=== PATIENT | male | born 1980 | race Caucasian/White ===

== ENCOUNTER 2018-08-05 21:15 | Emergency (ER) | payer OTHER ==
--- OUTSIDE RECORDS SUMMARY | 2018-08-05 21:17 | XMS REPORT | Clinical Summary ---
:1980 Author Organization [facility] Address [address] [place] [address] Care Team Providers Name Role Phone Asked, No Pcp Primary Care Provider Unavailable Allergies No Known Allergies Medications Medication Sig Dispensed Refills Start Date End Date Status meloxicam (MOBIC) Take 1 tablet 10 tablet 0 12/06/2017 Active 15 mg tablet (15 mg total) by mouth daily as needed for mild pain for up to 10 doses. penicillin v Take 1 tablet 40 tablet 0 12/06/2017 12/06/2017 Discontinued potassium (500 mg total) (VEETID) 500 MG by mouth 4 tablet (four) times a day for 7 days. acetaminophen-cod Take 1 tablet 10 tablet 0 12/06/2017 12/09/2017 eine (TYLENOL by mouth every WITH CODEINE #3) 6 (six) hours 300-30 mg per as needed for tablet moderate pain for up to 10 doses. meloxicam (MOBIC) Take 1 tablet 10 tablet 0 12/06/2017 12/06/2017 Discontinued 15 mg tablet (15 mg total) by mouth daily as needed for mild pain for up to 10 doses. penicillin v Take 1 tablet 28 tablet 0 12/06/2017 12/13/2017 potassium (500 mg total) (VEETID) 500 MG by mouth 4 tablet (four) times a day for 7 days. Active Problems Not on file Encounters Date Type Specialty Care Team Description 12/06/2017 Emergency Emergency Medicine Milton Cesar, Pulpitis ( Primary Dx); PACKER FUSER-C Dental decay Matheus Winter MD after 08/04/2017 Social History Tobacco Use Types Packs/Day Years Used Date Current Every Day Smoker Cigarettes 0.5 Smokeless Tobacco: Never Used Alcohol Use Drinks/Week oz/Week Comments Yes seldom Sex Assigned at Date Recorded Not on file Job Start Date Occupation Industry Not on file Not on file Not on file Travel History Travel Start Travel End No recent travel history available. Last Filed Vital Signs Vital Sign Reading Time Taken Blood Pressure 135/87 12/06/2017 7:51 PM CDT Pulse 109 12/06/2017 7:51 PM CDT Temperature 37.1 C (98.8 F) 12/06/2017 7:51 PM CDT Respiratory Rate 22 12/06/2017 7:51 PM CDT Oxygen Saturation 97% 12/06/2017 7:51 PM CDT Inhaled Oxygen Concentration - - Weight 72.6 kg (160 lb) 12/06/2017 6:27 PM CDT Height 170.2 cm (5' 7") 12/06/2017 6:27 PM CDT Body Mass Index 25.06 12/06/2017 6:27 PM CDT Plan of Treatment Not on file Results Not on fileafter 08/04/2017 Advance Directives Patient has advance care planning documents on file. For more information, please contact:[place] [address]
--- OUTSIDE RECORDS SUMMARY | 2018-08-05 21:23 | XMS REPORT | Summary of Care ---
:1980 Author Encounter MICHAEL Wang(KODY) [id number] Date(s): 09/14/13 - 09/15/13 [facility] [address] Discharge Diagnosis: Status post fall Discharge Diagnosis: Acute cervical radiculopathy Discharge Disposition: Home Physician Attending: Marvin Meyer MD Reason for Visit FALL Vital Signs Most recent to oldest [Reference Range]: 1 2 Height 170.18 cm (09/14/13 11:12 PM) Temperature Oral [96.4-99.1 DegF] 98.6 DegF 98.4 DegF (09/15/13 1:17 AM) (09/14/13 11:12 PM) Systolic Blood Pressure [90-140 mmHg] 140 mmHg 155 mmHg (09/15/13 1:17 AM) *HI* (09/14/13 11:12 PM) Diastolic Blood Pressure [60-90 mmHg] 86 mmHg 99 mmHg (09/15/13 1:17 AM) *HI* (09/14/13 11:12 PM) Respiratory Rate [14-20 BRMIN] 16 BRMIN 18 BRMIN (09/15/13 1:17 AM) (09/14/13 11:12 PM) Peripheral Pulse Rate [60-100 bpm] 98 bpm 122 bpm (09/15/13 1:17 AM) *HI* (09/14/13 11:12 PM) Weight 90.909 kg (09/14/13 11:12 PM) Body Mass Index 31.39 m2 (09/14/13 11:12 PM) Problem List No data available for this section Allergies, Adverse Reactions, Alerts Substance Reaction Severity Status NKDA Active Medications acetaminophen-hydrocodone 325 mg-5 mg oral tablet 1 tab, PO, Q6H, for pain, # 20 tab, 0 Refill(s) Start Date: 09/15/13 Status: Orderedketorolac 60 mg, 2 mL, Route: IM, Drug form: INJ, ONCE, Dosing Weight 90.909, kg, Priority : STAT, Start date: 09/14/13 23:31:00, Stop date: 09/14/13 23:31:00 Notes: (Same as:Toradol) IV bolus must be given >15 seconds. Give IM administration slowly and deeply into the muscle. Not for use > 4 days Start Date: 09/14/13 Stop Date: 09/15/13 Status: Completedorphenadrine 60 mg, 2 mL, Route: IM, Drug form: INJ, ONCE, Dosing Weight 90.909, kg, Priority : STAT, Start date: 09/14/13 23:31:00, Stop date: 09/14/13 23:31:00 Start Date: 09/14/13 Stop Date: 09/15/13 Status: Completedorphenadrine 100 mg oral tablet, extended release 100 mg=1 tab, PO, BID, # 10 tab, 0 Refill(s) Start Date: 09/15/13 Stop Date: 09/20/13 Status: Ordered Medications Administered During Your Visit No data available for this section Immunizations No data available for this section Procedures Procedure Type Body Site Date of Procedure Related Diagnosis Back fusion Social History Social History Type Response Smoking Status Never smoker, Exposure to Tobacco Smoke None, Cigarette Smoking Last 365 Days No, Reg Smoking Cessation Counseling No
--- OUTSIDE RECORDS SUMMARY | 2018-08-05 21:23 | XMS REPORT | Summary of Care ---
:1980 Author Organization [facility] Address [address] [place] [address]- Encounter HQ Kathleen(FIN) [id number] Date(s): 07/24/17 - 07/26/17 [facility] [address] [place] [phone] Encounter Diagnosis Cellulitis of face (Final) - Discharge Disposition: Home or Self Care Attending Physician: Vale Ibrahim MD Admitting Physician: Vale Ibrahim MD Vital Signs Most recent to oldest 1 2 3 [Reference Range]: Height 170.18 cm 170.18 cm 170.18 cm (07/24/17 4:19 PM) (07/24/17 3:48 PM) (07/24/17 3:47 PM) Current Weight 82.273 kg (07/24/17 4:19 PM) Temperature Oral [96.4-99.1 99.1 DegF 98.1 DegF 97.6 DegF DegF] (07/26/17 7:45 AM) (07/26/17 5:35 AM) (07/25/17 11:31 PM) Blood Pressure [90-140/60-90 132/81 mmHg 134/82 mmHg 114/76 mmHg mmHg] (07/26/17 7:45 AM) (07/26/17 5:35 AM) (07/25/17 11:31 PM) Respiratory Rate [14-20 BRMIN] 18 BRMIN 18 BRMIN 17 BRMIN (07/26/17 7:45 AM) (07/26/17 5:35 AM) (07/25/17 11:31 PM) Peripheral Pulse Rate [60-100 95 bpm 76 bpm 81 bpm bpm] (07/26/17 7:45 AM) (07/26/17 5:35 AM) (07/25/17 11:31 PM) Weight 82.273 kg 82.273 kg (07/24/17 3:48 PM) (07/24/17 3:47 PM) Body Mass Index 28.41 m2 28.41 m2 (07/24/17 3:48 PM) (07/24/17 3:47 PM) Problem List Condition Effective Dates Status Health Status Informant Back pain, chronic(Confirmed) Resolved Allergies, Adverse Reactions, Alerts Substance Reaction Severity Status NKDA Active Medications acetaminophen 650 mg, 2 tab, Route: PO, Drug form: TAB, Q4H, Dosing Weight 82.273, kg, PRN Pain 1-3/Temp > 100.4 F, Start date: 07/24/17 15:57:00 CDT, Duration: 30 day , Stop date: 08/23/17 15:56:00 CDT Notes: Do not exceed 4 gm/day. (Same as: Tylenol) Start Date: 07/24/17 Stop Date: 07/26/17 Status: DiscontinuedAugmentin 875 mg oral tablet 1 tab, PO, Q12H, X 7 day, # 14 tab, 0 Refill(s), Pharmacy: [facility] [id number] Start Date: 07/26/17 Stop Date: 08/02/17 Status: Orderedbaclofen 20 mg, 2 tab, Route: PO, Drug form: TAB, Q6H, Dosing Weight 82.273, kg, PRN as needed for muscle spasm, Start date: 07/24/17 23:36:00 CDT, Duration: 30 day, Stop date: 08/23/17 23:35:00 CDT Notes: (Same As: Lioresal) Start Date: 07/24/17 Stop Date: 07/26/17 Status: Discontinuedbaclofen 20 mg oral tablet 20 mg=1 tab, PO, Q6H, PRN Spasm, # 270 tab, 0 Refill(s) Start Date: 07/24/17 Status: OrderedcloNIDine 0.1 mg oral tablet 0.1 mg, 1 tab, Route: PO, Drug form: TAB, Q6H, Dosing Weight 82.273, kg, PRN Anxiety, Start date: 07/24/17 23:36:00 CDT, Duration: 30 day, Stop date: 23:35:00 CDT Notes: (Same As: Catapres) Start Date: 07/24/17 Stop Date: 07/26/17 Status: DiscontinuedcloNIDine 0.1 mg oral tablet 0.1 mg=1 tab, PO, Q6H, PRN Anxiety, prn for cravings & anxiety, # 90 tab, 3 Refill(s) Start Date: 07/24/17 Status: OrderedCymbalta 30 mg, 1 cap, Route: PO, Drug form: DRC, BID, Dosing Weight 82.273, kg, Start date: 07/24/17 23:38:00 CDT, Duration: 30 day, Stop date: 08/23/17 17:00:00 CDT Notes: (Same as: Cymbalta) (Do Not Crush) Start Date: 07/24/17 Stop Date: 07/26/17 Status: DiscontinuedCymbalta 30 mg oral delayed release capsule 30 mg=1 cap, PO, BID, # 60 cap, 0 Refill(s) Start Date: 07/24/17 Status: Orderedgabapentin 600 mg oral tablet 600 mg, 2 cap, Route: PO, Drug form: CAP, BID, Dosing Weight 82.273, kg, Start date: 07/24/17 23:41:00 CDT, Duration: 30 day, Stop date: 08/23/17 17:00:00 CDT Notes: (Same as: Neurontin) Start Date: 07/24/17 Stop Date: 07/26/17 Status: Discontinuedgabapentin 600 mg oral tablet, extended release 600 mg=1 tab, PO, BID, 0 Refill(s) Start Date: 07/24/17 Status: Orderedibuprofen 600 mg, 1 tab, Route: PO, Drug form: TAB, Q6H, Dosing Weight 82.273, kg, PRN Pain Score 1-3, Start date: 07/24/17 16:20:00 CDT, Duration: 30 day, Stop date: 08/23/17 16:19:00 CDT Notes: (Same as: Motrin)"Do Not Crush" Take with food. Start Date: 07/24/17 Stop Date: 07/26/17 Status: Discontinuedibuprofen 600 mg oral tablet 600 mg=1 tab, PO, Q6H, PRN Pain, take with food, # 30 tab, 0 Refill(s) Start Date: 07/24/17 Stop Date: 07/26/17 Status: Discontinuedibuprofen 600 mg oral tablet 600 mg=1 tab, PO, Q8H, PRN Pain, take with food, X 5 day, # 15 tab, 0 Refill(s) , Pharmacy: [facility] [id number] Start Date: 07/26/17 Stop Date: 07/31/17 Status: OrderedketOROLAC 15 mg/mL injectable solution 15 mg, 1 mL, Route: IVP, Drug form: INJ, Q6H, Dosing Weight 82.273, kg, PRN Pain Score 4-6, Start date: 07/24/17 16:04:00 CDT, Duration: 4 day, Stop date: 07/28/17 16:03:00 CDT Notes: (Same as:Toradol) IV bolus must be given >15 seconds. Give IM administration slowly and deeply into the muscle. Not for use > 4 days. Start Date: 07/24/17 Stop Date: 07/26/17 Status: Discontinuedondansetron 4 mg, 2 mL, Route: IVP, Drug form: INJ, Q6H, Dosing Weight 82.273, kg, PRN Nausea & Vomiting, Start date: 07/24/17 15:57:00 CDT, Duration: 30 day, Stop date: 08/23/17 15:56:00 CDT Notes: (Same as: Zofran) MEDICATION WASTE Product Size: 4 mgProduct Wasted: ___ mg Start Date: 07/24/17 Stop Date: 07/26/17 Status: DiscontinuedSaline Flush 0.9% 10 ml, Route: IVP, Drug Form: INJ, Dosing Weight 82.273, kg, PRN, PRN Line Flush , Start date: 07/24/17 15:57:00 CDT, Duration: 30 day, Stop date: 08/23/17 15:56 :00 CDT Notes: (Same as: BD Posiflush) Start Date: 07/24/17 Stop Date: 07/26/17 Status: DiscontinuedSEROquel 50 mg, 2 tab, Route: PO, Drug form: TAB, Bedtime, Dosing Weight 82.273, kg, Start date: 07/24/17 23:37:00 CDT, Stop date: 08/23/17 21:00:00 CDT Notes: (Same as: SEROquel) Start Date: 07/24/17 Stop Date: 07/26/17 Status: DiscontinuedSEROquel 50 mg oral tablet 50 mg=1 tab, PO, Bedtime, # 180 tab, 0 Refill(s) Start Date: 07/24/17 Status: OrderedSodium Chloride 0.9% IV 1,000 mL 1,000 mL, Rate: 100 ml/hr, Infuse over: 10 hr, Route: IV, Dosing Weight 82.273 kg, Total Volume: 1,000, Start date: 07/24/17 15:57:00 CDT, Duration: 30 day, Stop date: 08/23/17 15:56:00 CDT, 1.99, m2 Start Date: 07/24/17 Stop Date: 07/26/17 Status: DiscontinuedTylenol 325 mg oral tablet 650 mg=2 tab, PO, Q6H, PRN Fever, # 120 tab, 0 Refill(s) Start Date: 07/24/17 Stop Date: 08/03/17 Status: OrderedUnasyn + Sodium Chloride 0.9% IV 100 mL 3 gm, Route: IVPB, ABXQ6H, Dosing Weight 82.273, kg, Start date: 07/25/17 15:00: 00 CDT, Duration: 30day, Stop date: 08/24/17 9:00:00 CDT Notes: Dosing based on Ampicillin component (Same as: Unasyn) Start Date: 07/25/17 Stop Date: 07/26/17 Status: DiscontinuedVistaril 50 mg oral capsule 50 mg, 2 cap, Route: PO, Drug form: CAP, Q6H, Dosing Weight 82.273, kg, PRN Anxiety, Start date: 07/24/17 23:36:00 CDT, Duration: 30 day, Stop date: 23:35:00 CDT Notes: (Same as: Vistaril) Start Date: 07/24/17 Stop Date: 07/26/17 Status: DiscontinuedVistaril 50 mg oral capsule 50 mg=1 cap, PO, Q6H, PRN Anxiety, # 40 cap, 0 Refill(s) Start Date: 07/24/17 Stop Date: 08/03/17 Status: OrderedZosyn + Sodium Chloride 0.9% IV 100 mL 3.375 gm, Route: IVPB, ABXQ8H, Dosing Weight 82.273, kg, CrCl >=20 ml/min infuse over 4 hours, Start date: 07/24/17 17:00:00 CDT, Duration: 7 day, Stop date: 07/31/17 9:00:00 CDT, ABX Indication: Skin/Soft Tissue Infection Notes: (Same as: Zosyn)Dosing based on Piperacillin component MEDICATION WASTE Product Size: 3375 mgProduct Wasted: ___ mg Start Date: 07/24/17 Stop Date: 07/25/17 Status: DiscontinuedZubsolv Zubsolv, 0.7mg/0.18mg, Route: SL, BID, 07/24/17 23:41:00 CDT, Duration: 30 day, Stop date: 08/23/17 17:00:00 CDT Start Date: 07/24/17 Stop Date: 07/26/17 Status: DiscontinuedZubsolv 0.7 mg-0.18 mg sublingual tablet 1 tab, SL, BID, 0 Refill(s) Start Date: 07/24/17 Status: Ordered Results ELECTROLYTES Most recent to oldest [Reference Range]: 1 2 Sodium Lvl [135-145 mEq/L] 145 mEq/L 144 mEq/L (07/26/17 3:52 AM) (07/25/17 3:41 AM) Potassium Lvl [3.5-5.1 mEq/L] 4.7 mEq/L 4.5 mEq/L (07/26/17 3:52 AM) (07/25/17 3:41 AM) Chloride Lvl [95-109 mEq/L] 109 mEq/L 110 mEq/L (07/26/17 3:52 AM) *HI* (07/25/17 3:41 AM) CO2 [24-32 mEq/L] 30 mEq/L 28 mEq/L (07/26/17 3:52 AM) (07/25/17 3:41 AM) AGAP [10.0-20.0 mEq/L] 10.7 mEq/L 10.5 mEq/L (07/26/17 3:52 AM) (07/25/17 3:41 AM) CHEM PANEL Most recent to oldest [Reference Range]: 1 2 Creatinine Lvl [0.50-1.40 mg/dL] 0.89 mg/dL 0.92 mg/dL (07/26/17 3:52 AM) (07/25/17 3:41 AM) eGFR 111 mL/min/1.73m2 1 107 mL/min/1.73m2 2 *NA* *NA* (07/26/17 3:52 AM) (07/25/17 3:41 AM) BUN [7-22 mg/dL] 8 mg/dL 11 mg/dL (07/26/17 3:52 AM) (07/25/17 3:41 AM) Glucose Lvl [70-99 mg/dL] 100 mg/dL 99 mg/dL *HI* (07/25/17 3:41 AM) (07/26/17 3:52 AM) Calcium Lvl [8.5-10.5 mg/dL] 8.6 mg/dL 8.3 mg/dL (07/26/17 3:52 AM) *LOW* (07/25/17 3:41 AM) Magnesium Lvl [1.8-2.4 mg/dL] 2.0 mg/dL 2.1 mg/dL (07/26/17 3:52 AM) (07/25/17 3:41 AM) Procalcitonin Lvl [0.00-0.10] 0.13 *HI* (07/24/17 5:22 PM) 1Result Comment: The eGFR is calculated using the CKD-EPI formula. In most young , healthy individualsthe eGFR will be >90 mL/min/1.73m2. The eGFR declines with age. An eGFR of 60-89 may be normal insome populations, particularly the elderly, for whom the CKD-EPI formula has not been extensively validated. Use of the eGFR is not recommended in the following populations: Individuals with unstable creatinine concentrations, including patients and those with serious co-morbid conditions. Patients with extremes in muscle mass or diet. The data above are obtained from the National Kidney Disease Education Program ( NKDEP) which additionally recommends that when the eGFR is used in patients with extremes of body mass index for purposesof drug dosing, the eGFR should be multiplied by the estimated BMI.2Result Comment: The eGFR is calculated using the CKD-EPI formula. In most young, healthy individualsthe eGFR will be >90 mL/min/1.73m2. The eGFR declines with age. An eGFR of 60-89 may be normal insome populations, particularly the elderly, for whom the CKD-EPI formula has not been extensively validated. Use of the eGFR is not recommended in the following populations: Individuals with unstable creatinine concentrations, including patients and those with serious co-morbid conditions. Patients with extremes in muscle mass or diet. The data above are obtained from the National Kidney Disease Education Program ( NKDEP) which additionally recommends that when the eGFR is used in patients with extremes of body mass index for purposesof drug dosing, the eGFR should be multiplied by the estimated BMI.HEMATOLOGY Most recent to oldest [Reference Range]: 1 2 WBC [3.7-10.4 K/CMM] 5.6 K/CMM 5.5 K/CMM (07/26/17 3:52 AM) (07/25/17 3:41 AM) RBC [4.70-6.10 M/CMM] 4.64 M/CMM 4.65 M/CMM *LOW* *LOW* (07/26/17 3:52 AM) (07/25/17 3:41 AM) Hgb [14.0-18.0 g/dL] 13.9 g/dL 13.8 g/dL *LOW* *LOW* (07/26/17 3:52 AM) (07/25/17 3:41 AM) Hct [42.0-54.0 %] 38.7 % 39.3 % *LOW* *LOW* (07/26/17 3:52 AM) (07/25/17 3:41 AM) MCV [80.0-94.0 fL] 83.4 fL 84.6 fL (07/26/17 3:52 AM) (07/25/17 3:41 AM) MCH [27.0-31.0 pg] 29.9 pg 29.6 pg (07/26/17 3:52 AM) (07/25/17 3:41 AM) MCHC [32.0-36.0 g/dL] 35.8 g/dL 35.0 g/dL (07/26/17 3:52 AM) (07/25/17 3:41 AM) RDW [11.5-14.5 %] 13.5 % 13.5 % (07/26/17 3:52 AM) (07/25/17 3:41 AM) MPV [7.4-10.4 fL] 8.9 fL 8.7 fL (07/26/17 3:52 AM) (07/25/17 3:41 AM) Platelet [133-450 K/CMM] 164 K/CMM 153 K/CMM (07/26/17 3:52 AM) (07/25/17 3:41 AM) Segs [45.0-75.0 %] 62.1 % 61.9 % (07/26/17 3:52 AM) (07/25/17 3:41 AM) Lymphocytes [20.0-40.0 %] 23.7 % 22.9 % (07/26/17 3:52 AM) (07/25/17 3:41 AM) Monocytes [2.0-12.0 %] 7.9 % 9.6 % (07/26/17 3:52 AM) (07/25/17 3:41 AM) Eosinophils [0.0-4.0 %] 5.6 % 5.0 % *HI* *HI* (07/26/17 3:52 AM) (07/25/17 3:41 AM) Basophils [0.0-1.0 %] 0.7 % 0.6 % (07/26/17 3:52 AM) (07/25/17 3:41 AM) Segs-Bands # [1.5-8.1 K/CMM] 3.5 K/CMM 3.4 K/CMM (07/26/17 3:52 AM) (07/25/17 3:41 AM) Lymphocytes # [1.0-5.5 K/CMM] 1.3 K/CMM 1.3 K/CMM (07/26/17 3:52 AM) (07/25/17 3:41 AM) Monocytes # [0.0-0.8 K/CMM] 0.4 K/CMM 0.5 K/CMM (07/26/17 3:52 AM) (07/25/17 3:41 AM) Eosinophils # [0.0-0.5 K/CMM] 0.3 K/CMM 0.3 K/CMM (07/26/17 3:52 AM) (07/25/17 3:41 AM) Immunizations No data available for this section Procedures Procedure Date Related Diagnosis Body Site Status Back fusion Completed Neck repair Completed Primary repair of tendon Completed Social History Social History Type Response Alcohol Never, Previous treatment: None. Alcohol use interferes with work or home: No. Drinks more than intended: No. Others hurt by drinking: No. Ready to change: No. Household alcohol concerns: No. Smoking Status Current some day smoker; Type: Cigarettes; Exposure to Tobacco Smoke None; Cigarette Smoking Last 365 Days No; Reg Smoking Cessation Counseling No entered on: 07/24/17 Assessment and Plan Extracted from: Title: Clinical Document Author: Vale Ibrahim MD Date: 07/25/17 Attending: Vale Ibrahim MD Service: Internal Medicine Code status: Full Code [Ordered] Reason for Admission: FACIAL CELLULITIS, FAILURE OF OUTPATIENT TREATMENT Working DRG: Isolation: No Isolation/Standard Precautions Consulting Physicians: William Sierra MD Office: Service: Infectious Disease Vale Gavin MD Office: Service: Infectious Disease Maxim Cottrell MD Office: Service: Otolaryngology Allergies (1) Active Reaction NKDA None documented SUBJECTIVE: No acute events overnight. Feels like there is a knot near is a right upper cheek. Tender to palpation. OBJECTIVE: Review of Systems: 10 Point review of systems performed negative as of above PE: GENERAL APPEARANCE: alert and cooperative, and appears to be in no acute distress. HEAD: normocephalic, atraumatic EYES: PERRL, EOMI. MOUTH: Oral mucosa appears moist. Right facial swelling and erythema improved compared to yesterday. Tender to palpation per NECK: Neck supple, non-tender CARDIAC: Normal S1 and S2. No murmurs heard. Normal rate and rhythm. LUNGS: Clear to auscultation without rales, rhonchi, wheezing or diminished breath sounds. ABDOMEN: Positive bowel sounds. Soft, nondistended, nontender. No guarding or rebound. EXTREMITIES: No lower extremity edema. Peripheral pulses intact. NEUROLOGICAL: CN II-XII intact. Strength and sensation symmetric and intact throughout. PSYCHIATRIC: Mood stable Date Wt(kg) Wt(lb) Ht(cm) Ht(in) Method 07/24 (initial) 82.27 181.00 Measured 07/24 170.18 67.00 Stated Vitals Tmp(F) Pulse BP RR SpO2 FIO2 07/25 09:11 98.1 79 123/77 18 99 --- 07/25 04:00 98.0 85 113/72 18 98 --- 07/25 00:00 98.1 95 130/83 18 98 --- 07/24 20:00 98.0 94 123/65 17 95 --- 07/24 16:23 98.2 75 139/91 17 100 --- 24 Hr Tmax: 98.2F (36.78c) at 07/24 16:23 Vital Signs are the last 5 in the past 48 hours. Medications (14) Active Scheduled Meds (5): 07/24/17 DULoxetine (Cymbalta) 30 mg PO BID 07/24/17 QUEtiapine (SEROquel) 50 mg PO Bedtime 07/25/17 ampicillin-sulbactam (Unasyn) 3 gm IVPB ABXQ6H 07/24/17 gabapentin (gabapentin 600 mg oral tablet) 600 mg PO BID 07/24/17 non-formulary (Zubsolv) SL BID Unscheduled Meds: None PRN Meds (8): 07/24/17 acetaminophen 650 mg PO Q4H 07/24/17 baclofen 20 mg PO Q6H 07/24/17 cloNIDine (cloNIDine 0.1 mg oral tablet) 0.1 mg PO Q6H 07/24/17 hydrOXYzine (Vistaril 50 mg oral capsule) 50 mg PO Q6H 07/24/17 ibuprofen 600 mg PO Q6H 07/24/17 ketOROLAC (ketOROLAC 15 mg/mL injectable solution) 15 mg IVP Q6H 07/24/17 ondansetron 4 mg IVP Q6H 07/24/17 sodium chloride (Saline Flush 0.9%) 10 ml IVP PRN One Time Meds: None Continuous Infusions (1): 07/24/17 Sodium Chloride 0.9% IV 1,000 mL 1,000 mL 100 ml/hr Lines, Tubes, and Drains: 07/24/2017 16:00 Peripheral Lines: Antecubital Left Over the needle catheter I&O Record In Out Bal 07/25 24hr Tot 102 0 102 07/24 24hr Tot 462 0 462 24hr Labs 07/25 0341 Glucose Lvl 99 BUN 11 Creatinine Lvl 0.92 Sodium Lvl 144 Potassium Lvl 4.5 Chloride Lvl 110 H CO2 28 AGAP 10.5 Calcium Lvl 8.3 L eGFR 107 Magnesium Lvl 2.1 WBC 5.5 RBC 4.65 L Hgb 13.8 L Hct 39.3 L MCV 84.6 MCH 29.6 MCHC 35.0 RDW 13.5 Platelet 153 MPV 8.7 Segs 61.9 Monocytes 9.6 Lymphocytes 22.9 Eosinophils 5.0 H Basophils 0.6 Segs-Bands # 3.4 Lymphocytes # 1.3 Monocytes # 0.5 Eosinophils # 0.3 07/24 1722 Procalcitonin Lvl 0.13 H ASSESSMENT & PLAN: Assessment: Failure of outpatient therapy Right facial cellulitis Chronic back pain status post cervical fusion Plan: Currently on IV Zosyn. Discussed with infectious disease, will de-escalate to IV Unasyn and if continued improvement discharge on oral Augmentin tomorrow. Blood culture 2 trending negative for now. No leukocytosis. ENT recommendations noted. IV ketorolac and p.o. ibuprofen as needed. Avoid narcotics. DVT prophylaxis SCDs and ambulation. Has been ablating well without difficulties. Disposition: If continued improvement, likely discharge tomorrow a.m. on Augmentin per ID Extracted from: Title: ENT Consultation Author: Maxim Cottrell MD Date: 07/24/17 Impression and Plan 36 yo M with right facial swelling 2/2 poor dentition and small odontogenic abscess per report. Cellulitis on exam. - workup is substandard since CT is only available by report and was done without contrast anyway. However, exam is consistent with cellulitis 2/2 small odontogenic abscess. He will need tooth extracted as an outpatient with a dentist. However he does not require I&D now based on available information and exam. - continue IV abx per primary team; consider Unasyn or clindamycin - ok for steroids; decadron 10mg q8h is acceptable and may help some with symptoms - will follow peripherally. He will need to follow up with his dentist when discharged. He is aware he needs extractions. If he does not improve clinically over the next few days on IV abx and especiall y if he starts having new fevers, then he will require repeat CT Face with contrast. Please call me with any questions or concerns. Extracted from: Title: History and Physical Author: Vale Ibrahim MD Date: 07/24/17 Assessment: Failure of outpatient therapy Right facial cellulitis Chronic back painstatus postcervical fusion Plan: Received vancomycin and Zosyn while in the ER. Will continue with IV Zosyn for now and involve infectious disease secondary to failure for outpatient therapy. If continued improvement and culture returns negative, likely de-escalation tomorrow. Check blood culture 2, pro calcitonin and daily labs. Will also involve ENT with facialswelling and subcutaneous edemasecondary totransferrequest IV ketorolac and p.o. ibuprofen as needed. Avoid narcotics. Currentlysaturating well on room air without any shortness of breath. Continue to watch respiratory status carefully. DVT prophylaxis SCDs and ambulation Disposition: Pending clinical improvement likely more than2 midnights
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
--- OUTSIDE RECORDS SUMMARY | 2018-08-05 21:24 | XMS REPORT | Summary of Care ---
:1980 Author Encounter MICHAEL Wang(KODY) [id number] Date(s): 12/20/13 - 12/20/13 [facility] [address] Discharge Diagnosis: Back pain Discharge Disposition: Home Physician Attending: Aldo Manzo MD Reason for Visit LOWER BACK PAIN Vital Signs Most recent to oldest 1 2 3 [Reference Range]: Temperature Oral [96.4-99.1 98.3 DegF 98.4 DegF DegF] (12/20/13 6:13 PM) (12/20/13 2:27 PM) Systolic Blood Pressure 117 mmHg 109 mmHg 154 mmHg [90-140 mmHg] (12/20/13 6:13 PM) (12/20/13 5:40 PM) *HI* (12/20/13 2:27 PM) Diastolic Blood Pressure 76 mmHg 82 mmHg 88 mmHg [60-90 mmHg] (12/20/13 6:13 PM) (12/20/13 5:40 PM) (12/20/13 2:27 PM) Respiratory Rate [14-20 16 BRMIN 20 BRMIN 22 BRMIN BRMIN] (12/20/13 6:13 PM) (12/20/13 5:40 PM) *HI* (12/20/13 2:27 PM) Peripheral Pulse Rate 105 bpm 108 bpm 111 bpm [60-100 bpm] *HI* *HI* *HI* (12/20/13 6:13 PM) (12/20/13 5:40 PM) (12/20/13 2:27 PM) Weight 90.909 kg (12/20/13 2:27 PM) Problem List No data available for this section Allergies, Adverse Reactions, Alerts Substance Reaction Severity Status NKDA Active Medications Dilaudid 1 mg, Route: IVP, ONCE, Dosing Weight 90.909, kg, Priority: STAT, Start date: 17:35:00, Stop date: 12/20/13 17:35:00 Start Date: 12/20/13 Stop Date: 12/20/13 Status: CompletedFlexeril 10 mg oral tablet 10 mg=1 tab, PO, TID, for spasm, # 30 tab, 0 Refill(s) Start Date: 12/20/13 Status: Orderedketorolac 30 mg, Route: IVP, ONCE, Dosing Weight 90.909, kg, Priority: STAT, Start date: 12/20/13 15:05:00, Stop date: 12/20/13 15:05:00 Start Date: 12/20/13 Stop Date: 12/20/13 Status: Completedmorphine Sulfate 8 mg, Route: IVP, ONCE, Dosing Weight 90.909, kg, Priority: STAT, Start date: 15:05:00, Stop date: 12/20/13 15:05:00 Start Date: 12/20/13 Stop Date: 12/20/13 Status: Completednaproxen 500 mg oral tablet 500 mg=1 tab, PO, BID, Pain, # 30 tab, 0 Refill(s) Start Date: 12/20/13 Status: OrderedNorco 5/325 oral tablet 1-2 tab, PO, Q4-6H, Pain, # 15 tab, 0 Refill(s) Start Date: 12/20/13 Stop Date: 12/25/13 Status: Orderedondansetron 4 mg, Route: IVP, ONCE, Dosing Weight 90.909, kg, Priority: STAT, Start date: 15:05:00, Stop date: 12/20/13 15:05:00 Start Date: 12/20/13 Stop Date: 12/20/13 Status: Completedondansetron 4 mg, Route: IVP, ONCE, Dosing Weight 90.909, kg, Priority: STAT, Start date: 17:27:00, Stop date: 12/20/13 17:27:00 Start Date: 12/20/13 Stop Date: 12/20/13 Status: CompletedSaline Flush 0.9% 10 mL, Route: IVP, Drug Form: INJ, Dosing Weight 90.909, kg, PRN, PRN Line Flush , Start date: 12/20/13 15:05:00, Duration: 30 day, Stop date: 01/19/14 14:04:00 Notes: Same as: BD Posiflush Sterile Start Date: 12/20/13 Stop Date: 12/20/13 Status: Discontinued Results ELECTROLYTES Most recent to oldest [Reference Range]: 1 Sodium Lvl [135-145 mEq/L] 136 mEq/L (12/20/13 2:43 PM) Potassium Lvl [3.5-5.1 mEq/L] 4.5 mEq/L (12/20/13 2:43 PM) Chloride Lvl [95-109 mEq/L] 102 mEq/L (12/20/13 2:43 PM) CO2 [24-32 mEq/L] 28 mEq/L (12/20/13 2:43 PM) AGAP [10.0-20.0 mEq/L] 10.5 mEq/L (12/20/13 2:43 PM) CHEM PANEL Most recent to oldest [Reference Range]: 1 Creatinine Lvl [0.5-1.4 mg/dL] 1.1 mg/dL (12/20/13 2:43 PM) eGFR 86 mL/min/1.73m2 1 *NA* (12/20/13 2:43 PM) BUN [7-22 mg/dL] 18 mg/dL (12/20/13 2:43 PM) B/C Ratio [6-25] 16 (12/20/13 2:43 PM) Glucose Lvl [70-99 mg/dL] 94 mg/dL 2 (12/20/13 2:43 PM) Total Protein [6.4-8.4 g/dL] 8.4 g/dL (12/20/13 2:43 PM) Albumin Lvl [3.5-5.0 g/dL] 4.4 g/dL (12/20/13 2:43 PM) Globulin [2.0-4.0 g/dL] 4.0 g/dL (12/20/13 2:43 PM) A/G Ratio [0.7-1.6] 1.1 (12/20/13 2:43 PM) Calcium Lvl [8.5-10.5 mg/dL] 9.4 mg/dL (12/20/13 2:43 PM) ALT [0-65 unit/L] 49 unit/L (12/20/13 2:43 PM) AST [0-37 unit/L] 26 unit/L (12/20/13 2:43 PM) Alk Phos [39-136 unit/L] 70 unit/L (12/20/13 2:43 PM) Bili Total [0.2-1.3 mg/dL] 0.4 mg/dL (12/20/13 2:43 PM) Amylase Lvl [25-115 unit/L] 46 unit/L (12/20/13 2:43 PM) Lipase Lvl [73-393 unit/L] 105 unit/L (12/20/13 2:43 PM) 1Result Comment: The eGFR is calculated using the CKD-EPI formula. In most young , healthy individualsthe eGFR will be >90 mL/min/1.73m2. The eGFR declines with age. An eGFR of 60-89 may be normal in some populations, particularly the elderly, for whom [...] eGFR should be multiplied by the estimated BMI.2Interpretive Data: Adult reference range values reflect the clinical guidelines of the [place] [employer].URINE AND STOOL Most recent to oldest [Reference Range]: 1 UA Turbidity [Clear] Clear (12/20/13 2:30 PM) UA Color [Yellow] Yellow *NA* (12/20/13 2:30 PM) UA pH [5.0-8.0] 6.5 (12/20/13 2:30 PM) UA Spec Grav [<=1.030] 1.015 (12/20/13 2:30 PM) UA Glucose [Negative mg/dL] Negative mg/dL (12/20/13 2:30 PM) UA Blood [Negative] Negative (12/20/13 2:30 PM) UA Ketones [Negative mg/dL] Negative mg/dL *NA* (12/20/13 2:30 PM) UA Protein [Negative mg/dL] Negative mg/dL (12/20/13 2:30 PM) UA Urobilinogen [0.1-1.0 EU/dL] 0.2 EU/dL (12/20/13 2:30 PM) UA Bili [Negative] Negative *NA* (12/20/13 2:30 PM) UA Leuk Est [Negative] Negative (12/20/13 2:30 PM) UA Nitrite [Negative] Negative (12/20/13 2:30 PM) UA WBC [None Seen /HPF] 0-2 /HPF (12/20/13 2:30 PM) UA RBC [0-2 /HPF] 0-2 /HPF (12/20/13 2:30 PM) UA Bacteria [None Seen /HPF] Occasional /HPF (12/20/13 2:30 PM) UA Sq Epi [Few /LPF] Occasional /LPF (12/20/13 2:30 PM) UA Mucus [None Seen] None Seen (12/20/13 2:30 PM) Micro? Performed (12/20/13 2:30 PM) HEMATOLOGY Most recent to oldest [Reference Range]: 1 WBC [3.7-10.4 K/CMM] 6.3 K/CMM (12/20/13 2:43 PM) RBC [4.70-6.10 M/CMM] 5.78 M/CMM (12/20/13 2:43 PM) Hgb [14.0-18.0 g/dL] 18.2 g/dL *HI* (12/20/13 2:43 PM) Hct [42.0-54.0 %] 51.9 % (12/20/13 2:43 PM) MCV [80.0-94.0 fL] 89.9 fL (12/20/13 2:43 PM) MCH [27.0-31.0 pg] 31.5 pg *HI* (12/20/13 2:43 PM) MCHC [32.0-36.0 g/dL] 35.1 g/dL (12/20/13 2:43 PM) RDW [11.5-14.5 %] 13.1 % (12/20/13 2:43 PM) Platelet [133-450 K/CMM] 206 K/CMM (12/20/13 2:43 PM) MPV [7.4-10.4 fL] 9.6 fL (12/20/13 2:43 PM) Segs [45.0-75.0 %] 69.0 % (12/20/13 2:43 PM) Lymphocytes [20.0-40.0 %] 22.3 % (12/20/13 2:43 PM) Monocytes [2.0-12.0 %] 7.2 % (12/20/13 2:43 PM) Eosinophils [0.0-4.0 %] 0.9 % (12/20/13 2:43 PM) Basophils [0.0-1.0 %] 0.6 % (12/20/13 2:43 PM) Segs-Bands # [1.5-8.1 K/CMM] 4.3 K/CMM (12/20/13 2:43 PM) Lymphocytes # [1.0-5.5 K/CMM] 1.4 K/CMM (12/20/13 2:43 PM) Monocytes # [0.0-0.8 K/CMM] 0.5 K/CMM (12/20/13 2:43 PM) Eosinophils # [0.0-0.5 K/CMM] 0.1 K/CMM (12/20/13 2:43 PM) Medications Administered During Your Visit No data available for this section Immunizations No data available for this section Social History Social History Type Response Alcohol Use: Never, Previous treatment: None, Has alcohol use interfered with work or home life? No, Do you ever drink more than intended? No, Has anyone been hurt or at risk by your drinking? No, Ready to change: No, Concerns about alcohol use in household: No Smoking Status Never smoker, Exposure to Tobacco Smoke None, Cigarette Smoking Last 365 Days No, Reg Smoking Cessation Counseling No
--- OUTSIDE RECORDS SUMMARY | 2018-08-05 21:24 | XMS REPORT | Summary of Care ---
:1980 Author Encounter MICHAEL Wang(KODY) [id number] Date(s): 10/23/13 - 10/24/13 [facility] [address] Discharge Diagnosis: Neck sprain Discharge Diagnosis: Back sprain Discharge Disposition: Home Physician Attending: Ignacio Angeles MD Reason for Visit BACK/LEG PAIN RESIDENTIAL Vital Signs Most recent to oldest 1 2 3 [Reference Range]: Temperature Oral [96.4-99.1 98.0 DegF 97.6 DegF DegF] (10/24/13 1:24 AM) (10/23/13 10:02 PM) Systolic Blood Pressure 130 mmHg 133 mmHg 154 mmHg [90-140 mmHg] (10/24/13 1:24 AM) (10/24/13 12:02 AM) *HI* (10/23/13 10:02 PM) Diastolic Blood Pressure 65 mmHg 82 mmHg 106 mmHg [60-90 mmHg] (10/24/13 1:24 AM) (10/24/13 12:02 AM) *HI* (10/23/13 10:02 PM) Respiratory Rate [14-20 16 BRMIN 17 BRMIN 18 BRMIN BRMIN] (10/24/13 1:24 AM) (10/24/13 12:02 AM) (10/23/13 10:02 PM) Peripheral Pulse Rate [60-100 88 bpm 92 bpm 122 bpm bpm] (10/24/13 1:24 AM) (10/24/13 12:02 AM) *HI* (10/23/13 10:02 PM) Problem List No data available for this section Allergies, Adverse Reactions, Alerts Substance Reaction Severity Status NKDA Active Medications Dilaudid 1 mg, Route: IVP, ONCE, Dosing Weight 90.909, kg, Priority: STAT, Start date: 22:48:00, Stop date: 10/23/13 22:48:00 Start Date: 10/23/13 Stop Date: 10/23/13 Status: CompletedFlexeril 5 mg oral tablet 5 mg=1 tab, PO, TID, # 21 tab, 0 Refill(s) Start Date: 10/24/13 Stop Date: 10/31/13 Status: OrderedNorco 10/325 oral tablet 1 tab, Route: PO, Drug Form: TAB, Dosing Weight 90.909, kg, ONCE, STAT, Start date: 10/24/13 0:59:00, Stop date: 10/24/13 0:59:00 Start Date: 10/24/13 Stop Date: 10/24/13 Status: CompletedNorco 5/325 oral tablet 1 tab, PO, Q4-6H, as needed for pain, # 30 tab, 0 Refill(s) Start Date: 10/24/13 Status: OrderedNS (Bolus) IV 500 mL, 500 ml/hr, Infuse Over: 1 hr, Route: IV, ONCE, Priority: STAT, Dosing Weight 90.909 kg, Start date: 10/23/13 22:48:00, Duration: 1 doses or times, Stop date: 10/23/13 22:48:00 Start Date: 10/23/13 Stop Date: 10/23/13 Status: Completed Results ELECTROLYTES Most recent to oldest [Reference Range]: 1 Sodium Lvl [135-145 mEq/L] 139 mEq/L (10/23/13 11:00 PM) Potassium Lvl [3.5-5.1 mEq/L] 3.6 mEq/L (10/23/13 11:00 PM) Chloride Lvl [95-109 mEq/L] 105 mEq/L (10/23/13 11:00 PM) CO2 [24-32 mEq/L] 30 mEq/L (10/23/13 11:00 PM) AGAP [10.0-20.0 mEq/L] 7.6 mEq/L *LOW* (10/23/13 11:00 PM) CHEM PANEL Most recent to oldest [Reference Range]: 1 Creatinine Lvl [0.5-1.4 mg/dL] 1.2 mg/dL (10/23/13 11:00 PM) eGFR 84 mL/min/1.73m2 1 *NA* (10/23/13 11:00 PM) BUN [7-22 mg/dL] 12 mg/dL (10/23/13 11:00 PM) B/C Ratio [6-25] 10 (10/23/13 11:00 PM) Glucose Lvl [70-99 mg/dL] 89 mg/dL 2 (10/23/13:00 PM) Total Protein [6.4-8.4 g/dL] 7.2 g/dL (10/23/13 11:00 PM) Albumin Lvl [3.5-5.0 g/dL] 4.0 g/dL (10/23/13:00 PM) Globulin [2.0-4.0 g/dL] 3.2 g/dL (10/23/13:00 PM) A/G Ratio [0.7-1.6] 1.2 (10/23/13:00 PM) Calcium Lvl [8.5-10.5 mg/dL] 8.9 mg/dL (10/23/13 11:00 PM) ALT [0-65 unit/L] 30 unit/L (10/23/13 11:00 PM) AST [0-37 unit/L] 18 unit/L (10/23/13 11:00 PM) Alk Phos [39-136 unit/L] 67 unit/L (10/23/13 11:00 PM) Bili Total [0.2-1.3 mg/dL] 0.2 mg/dL (10/23/13 11:00 PM) 1Result Comment: The eGFR is calculated [...] values reflect the clinical guidelines of the [place] [employer].URINE AND STOOL Most recent to oldest [Reference Range]: 1 UA Turbidity [Clear] Clear (10/23/13 11:00 PM) UA Color [Yellow] Light Yellow (10/23/13 11:00 PM) UA pH [5.0-8.0] 6.0 (10/23/13 11:00 PM) UA Spec Grav [<=1.030] <=1.005 *NA* (10/23/13 11:00 PM) UA Glucose [Negative] Negative (10/23/13 11:00 PM) UA Blood [Negative] Negative (10/23/13 11:00 PM) UA Ketones [Negative] Negative *NA* (10/23/13 11:00 PM) UA Protein [Negative] Negative (10/23/13 11:00 PM) UA Urobilinogen [0.1-1.0 EU/dL] 0.2 EU/dL (10/23/13 11:00 PM) UA Bili [Negative] Negative *NA* (10/23/13 11:00 PM) UA Leuk Est [Negative] Negative (10/23/13 11:00 PM) UA Nitrite [Negative] Negative (10/23/13 11:00 PM) UA WBC [None Seen] None Seen (10/23/13 11:00 PM) UA RBC [0-2] None Seen (10/23/13 11:00 PM) UA Bacteria [None Seen /HPF] Occasional /HPF (10/23/13 11:00 PM) UA Sq Epi [Few /LPF] Rare /LPF (10/23/13 11:00 PM) Micro? Performed (10/23/13 11:00 PM) HEMATOLOGY Most recent to oldest [Reference Range]: 1 WBC [3.7-10.4 K/CMM] 5.4 K/CMM (10/23/13 11:00 PM) RBC [4.70-6.10 M/CMM] 4.80 M/CMM (10/23/13 11:00 PM) Hgb [14.0-18.0 g/dL] 15.0 g/dL (10/23/13 11:00 PM) Hct [42.0-54.0 %] 42.4 % (10/23/13 11:00 PM) MCV [80.0-94.0 fL] 88.5 fL (10/23/13 11:00 PM) MCH [27.0-31.0 pg] 31.3 pg *HI* (10/23/13 11:00 PM) MCHC [32.0-36.0 g/dL] 35.4 g/dL (10/23/13 11:00 PM) RDW [11.5-14.5 %] 13.0 % (10/23/13 11:00 PM) Platelet [133-450 K/CMM] 194 K/CMM (10/23/13 11:00 PM) MPV [7.4-10.4 fL] 8.9 fL (10/23/13 11:00 PM) Segs [45.0-75.0 %] 53.7 % (10/23/13 11:00 PM) Lymphocytes [20.0-40.0 %] 34.3 % (10/23/13 11:00 PM) Monocytes [2.0-12.0 %] 7.0 % (10/23/13 11:00 PM) Eosinophils [0.0-4.0 %] 3.8 % (10/23/13 11:00 PM) Basophils [0.0-1.0 %] 1.2 % *HI* (10/23/13 11:00 PM) Segs-Bands # [1.5-8.1 K/CMM] 2.9 K/CMM (10/23/13 11:00 PM) Lymphocytes # [1.0-5.5 K/CMM] 1.9 K/CMM (10/23/13 11:00 PM) Monocytes # [0.0-0.8 K/CMM] 0.4 K/CMM (10/23/13 11:00 PM) Eosinophils # [0.0-0.5 K/CMM] 0.2 K/CMM (10/23/13 11:00 PM) Basophils # [0.0-0.2 K/CMM] 0.1 K/CMM (10/23/13 11:00 PM) Medications Administered During Your Visit No data available for this section Immunizations No data available for this section Procedures Procedure Type Body Site Date of Procedure Related Diagnosis Neck repair Social History Social History Type Response Alcohol [...]
--- OUTSIDE RECORDS SUMMARY | 2018-08-05 21:24 | XMS REPORT | Summary of Care ---
:1980 Author Encounter MICHAEL Wang(KODY) [id number] Date(s): 06/02/14 - 06/02/14 [facility] [address] [place] [address]- Discharge Diagnosis: Sciatica of left side Discharge Diagnosis: Chronic back pain Discharge Disposition: Home Physician Attending: April Mckee MD Vital Signs Most recent to oldest [Reference Range]: 1 2 Height 170.18 cm (06/02/14 10:50 PM) Temperature Oral [96.4-99.1 DegF] 98.2 DegF (06/02/14 10:50 PM) Blood Pressure [90-140/60-90 mmHg] 129/81 mmHg 144/90 mmHg (06/02/14 11:53 PM) *HI* (06/02/14 10:50 PM) Respiratory Rate [14-20 BRMIN] 16 BRMIN 20 BRMIN (06/02/14 11:53 PM) (06/02/14 10:50 PM) Peripheral Pulse Rate [60-100 bpm] 74 bpm 99 bpm (06/02/14 11:53 PM) (06/02/14 10:50 PM) Weight 86.364 kg (06/02/14 10:50 PM) Body Mass Index 29.82 m2 (06/02/14 10:50 PM) Problem List Condition Effective Dates Status Health Status Informant Back pain, chronic(Confirmed) Resolved Allergies, Adverse Reactions, Alerts Substance Reaction Severity Status NKDA Active Medications dexamethasone 10 mg, Route: IM, ONCE, Dosing Weight 86.364, kg, Priority: STAT, Start date: 23:11:00, Stop date: 06/02/14 23:11:00 Start Date: 06/02/14 Stop Date: 06/02/14 Status: Completedindomethacin 50 mg oral capsule 50 mg=1 cap, PO, Q8H, # 30 cap, 0 Refill(s) Start Date: 06/02/14 Stop Date: 06/12/14 Status: OrderedketOROLAC 60 mg, Route: IM, Drug form: INJ, ONCE, Dosing Weight 86.364, kg, Priority: STAT , Start date: 06/02/14 23:11:00, Stop date: 06/02/14 23:11:00 Start Date: 06/02/14 Stop Date: 06/02/14 Status: CompletedpredniSONE 20 mg oral tablet 20 mg=1 tab, PO, Daily, # 5 tab, 0 Refill(s) Start Date: 06/02/14 Stop Date: 06/07/14 Status: OrderedValium 10 mg, Route: PO, ONCE, Dosing Weight 86.364, kg, Priority: STAT, Start date: 23:11:00, Stop date: 06/02/14 23:11:00 Start Date: 06/02/14 Stop Date: 06/02/14 Status: CompletedValium 10 mg oral tablet 10 mg=1 tab, PO, BID, PRN Muscle Spasms, # 20 tab, 0 Refill(s) Start Date: 06/02/14 Status: Ordered Results No data available for this section Immunizations No data available for this section Procedures Procedure Date Related Diagnosis Body Site Back fusion Neck repair Primary repair of tendon Social History Social History Type Response Alcohol Never, Previous treatment: None. Alcohol use interferes with work or home: No. Drinks more than intended: No. Others hurt by drinking: No. Ready to change: No. Household alcohol concerns: No. Smoking Status Never smoker; Exposure to Tobacco Smoke None; Cigarette Smoking Last 365 Days No; Reg Smoking Cessation Counseling No Assessment and Plan No data available for this section
--- OUTSIDE RECORDS SUMMARY | 2018-08-05 21:24 | XMS REPORT | Summary of Care ---
:1980 Author Encounter MICHAEL Wang(KODY) [id number] Date(s): 05/09/14 - 05/09/14 [facility] [address] [place] [address]- [phone] Discharge Diagnosis: Acute exacerbation of chronic low back pain Discharge Disposition: Home Physician Attending: Aldo Manzo MD Vital Signs Most recent to oldest [Reference Range]: 1 2 Height 170.18 cm (05/09/14 5:14 PM) Temperature Oral [96.4-99.1 DegF] 98.0 DegF 98.1 DegF (05/09/14 6:19 PM) (05/09/14 5:14 PM) Blood Pressure [90-140/60-90 mmHg] 144/88 mmHg 159/89 mmHg *HI* *HI* (05/09/14 6:19 PM) (05/09/14 5:14 PM) Respiratory Rate [14-20 BRMIN] 18 BRMIN 18 BRMIN (05/09/14 6:19 PM) (05/09/14 5:14 PM) Peripheral Pulse Rate [60-100 bpm] 102 bpm 116 bpm *HI* *HI* (05/09/14 6:19 PM) (05/09/14 5:14 PM) Weight 84.091 kg (05/09/14 5:14 PM) Body Mass Index 29.04 m2 (05/09/14 5:14 PM) Problem List Condition Effective Dates Status Health Status Informant Back pain, chronic(Confirmed) Resolved Allergies, Adverse Reactions, Alerts Substance Reaction Severity Status NKDA Active Medications baclofen 20 mg oral tablet 20 mg=1 tab, PO, TID, # 30 tab, 0 Refill(s) Start Date: 05/09/14 Status: Ordereddexamethasone 10 mg, Route: IM, ONCE, Dosing Weight 84.091, kg, Priority: STAT, Start date: 17:31:00, Stop date: 05/09/14 17:31:00 Start Date: 05/09/14 Stop Date: 05/09/14 Status: CompletedFlexeril 10 mg, Route: PO, ONCE, Dosing Weight 84.091, kg, Priority: STAT, Start date: 17:31:00, Stop date: 05/09/14 17:31:00 Start Date: 05/09/14 Stop Date: 05/09/14 Status: Completedibuprofen 800 mg oral tablet 800 mg=1 tab, PO, Q8H, Fever or Pain, Take with food, # 30 tab, 0 Refill(s) Special Instructions: Take with food Start Date: 05/09/14 Stop Date: 05/19/14 Status: Orderedketorolac 60 mg, Route: IM, Drug form: INJ, ONCE, Dosing Weight 84.091, kg, Priority: STAT , Start date: 05/09/14 17:31:00, Stop date: 05/09/14 17:31:00 Start Date: 05/09/14 Stop Date: 05/09/14 Status: CompletedNorco 7.5/325 oral tablet 1 tab, Route: PO, Drug Form: TAB, Dosing Weight 84.091, kg, ONCE, STAT, Start date: 05/09/14 17:31:00, Stop date: 05/09/14 17:31:00 Start Date: 05/09/14 Stop Date: 05/09/14 Status: CompletedTylenol with Codeine #3 oral tablet 1 tab, PO, Q4H, for pain, # 30 tab, 0 Refill(s) Start Date: 05/09/14 Status: Ordered Results No data available for this section Immunizations No data available for this section Procedures Procedure Date Related Diagnosis Body Site Primary repair of tendon Social History Social [...]
--- OUTSIDE RECORDS SUMMARY | 2018-08-05 21:24 | XMS REPORT | Summary of Care ---
:1980 Author Organization [facility] Address [address] [place], [place] [address]- Encounter HQ Encntr_alikyra(FIN) [id number] Date(s): 11/01/14 - 11/02/14 [facility] [address] [place] [address]- [phone] Discharge Diagnosis: Acute sciatica Discharge Diagnosis: Muscle spasm Discharge Diagnosis: Internal derangement of knee Discharge Disposition: Home Attending Physician: Lg Romero DO Vital Signs Most recent to oldest [Reference Range]: 1 2 3 Height 170.18 cm (11/01/14 11:23 PM) Most recent to oldest [Reference Range]: 1 2 3 Temperature Oral [96.4-99.1 DegF] 99.0 DegF 99.0 DegF (11/02/14 1:01 AM) (11/01/14 11:23 PM) Most recent to oldest 1 2 3 [Reference Range]: Blood Pressure [90-140/60-90 120/80 mmHg 141/91 mmHg 141/91 mmHg mmHg] (11/02/14 1:01 AM) *HI* *HI* (11/01/14 11:35 PM) (11/01/14 11:23 PM) Most recent to oldest [Reference Range]: 1 2 3 Respiratory Rate [14-20 BRMIN] 18 BRMIN 18 BRMIN (11/02/14 1:01 AM) (11/01/14 11:23 PM) Most recent to oldest [Reference Range]: 1 2 3 Peripheral Pulse Rate [60-100 bpm] 100 bpm 100 bpm (11/02/14 1:01 AM) (11/01/14 11:23 PM) Most recent to oldest [Reference Range]: 1 2 3 Weight 88.636 kg (11/01/14 11:23 PM) Most recent to oldest [Reference Range]: 1 2 3 Body Mass Index 30.61 m2 (11/01/14 11:23 PM) Problem List Condition Effective Dates Status Health Status Informant Back pain, chronic(Confirmed) Resolved Allergies, Adverse Reactions, Alerts Substance Reaction Severity Status NKDA Active Medications ketOROLAC 60 mg, Route: IM, Drug form: INJ, ONCE, Dosing Weight 88.636, kg, Priority: STAT , Start date: 11/01/14 23:39:00, Stop date: 11/01/14 23:39:00 Start Date: 11/01/14 Stop Date: 11/01/14 Status: CompletedpredniSONE 50 mg oral tablet 50 mg=1 tab, PO, Daily, X 5 day, # 5 tab, 0 Refill(s) Start Date: 11/02/14 Stop Date: 11/07/14 Status: OrderedValium 5 mg, Route: PO, ONCE, Dosing Weight 88.636, kg, Priority: STAT, Start date: 23:39:00, Stopdate: 11/01/14 23:39:00 Start Date: 11/01/14 Stop Date: 11/01/14 Status: CompletedZanaflex 4 mg oral tablet 4 mg=1 tab, PO, Q8H, # 20 tab, 0 Refill(s) Start Date: 11/02/14 Status: Ordered Results No data available for [...]
--- OUTSIDE RECORDS SUMMARY | 2018-08-05 21:24 | XMS REPORT | Summary of Care ---
:1980 Author Encounter MICHAEL Wang(KODY) [id number] Date(s): 08/13/14 - 08/13/14 [facility] [address] [place] [address]- [phone] Discharge Diagnosis: Acute shoulder pain Discharge Disposition: Home Physician Attending: Randy Krishna MD Vital Signs Most recent to oldest [Reference Range]: 1 2 Height 170.18 cm (08/13/14 10:01 PM) Temperature Oral [96.4-99.1 DegF] 98.7 DegF 98.7 DegF (08/13/14 11:36 PM) (08/13/14 10:01 PM) Blood Pressure [90-140/60-90 mmHg] 142/72 mmHg 156/97 mmHg *HI* *HI* (08/13/14 11:36 PM) (08/13/14 10:01 PM) Respiratory Rate [14-20 BRMIN] 20 BRMIN 20 BRMIN (08/13/14 11:36 PM) (08/13/14 10:01 PM) Peripheral Pulse Rate [60-100 bpm] 85 bpm 97 bpm (08/13/14 11:36 PM) (08/13/14 10:01 PM) Weight 86.364 kg (08/13/14 10:01 PM) Body Mass Index 29.82 m2 (08/13/14 10:01 PM) Problem List Condition Effective Dates Status Health Status Informant Back pain, chronic(Confirmed) Resolved Allergies, Adverse Reactions, Alerts Substance Reaction Severity Status NKDA Active Medications Motrin 800 mg oral tablet 800 mg=1 tab, PO, Q8H, PRN Pain, Take with food, # 30 tab, 0 Refill(s) Special Instructions: Take with food Start Date: 08/13/14 Status: OrderedMotrin 800 mg oral tablet 800 mg=1 tab, PO, Q8H, PRN Pain, Take with food, # 30 tab, 0 Refill(s) Special Instructions: Take with food Start Date: 08/13/14 Status: OrderedNorco 7.5/325 oral tablet 1 tab, Route: PO, Drug Form: TAB, Dosing Weight 86.364, kg, ONCE, STAT, Start date: 08/13/14 22:25:00, Stop date: 08/13/14 22:25:00 Notes: Same as [place] 325-7.5mg Do not exceed 4gm/day of acetaminophen. Start Date: 08/13/14 Stop Date: 08/13/14 Status: Completed Results No data available for this section [...]
--- OUTSIDE RECORDS SUMMARY | 2018-08-05 21:24 | XMS REPORT | Summary of Care ---
:1980 Author Encounter IMCHAEL Wang(KODY) [id number] Date(s): 01/05/14 - 01/05/14 [facility] [address] Discharge Diagnosis: Chest pain, atypical Discharge Disposition: Home Physician Attending: Luis Carlos Perdue MD Reason for Visit Back Pain/Chest pain Vital Signs Most recent to oldest [Reference Range]: 1 2 Temperature Oral [96.4-99.1 DegF] 98.3 DegF 98.3 DegF (01/05/14 7:00 PM) (01/05/14 5:11 PM) Systolic Blood Pressure [90-140 mmHg] 144 mmHg 163 mmHg *HI* *HI* (01/05/14 7:00 PM) (01/05/14 5:11 PM) Diastolic Blood Pressure [60-90 mmHg] 95 mmHg 94 mmHg *HI* *HI* (01/05/14 7:00 PM) (01/05/14 5:11 PM) Respiratory Rate [14-20 BRMIN] 18 BRMIN 2 BRMIN (01/05/14 7:00 PM) *LOW* (01/05/14 5:11 PM) Peripheral Pulse Rate [60-100 bpm] 94 bpm 113 bpm (01/05/14 7:00 PM) *HI* (01/05/14 5:11 PM) Problem List Condition Effective Dates Status Health Status Informant Back pain, chronic(Confirmed) Resolved Allergies, Adverse Reactions, Alerts Substance Reaction Severity Status NKDA Active Medications acetaminophen-codeine 300 mg-60 mg oral tablet 1 - 2 tab, PO, Q4H, Pain, # 20 tab, 0 Refill(s) Start Date: 01/05/14 Stop Date: 01/07/14 Status: Orderedaspirin 324 mg, Route: PO, ONCE, Dosing Weight 90.909, kg, Priority: STAT, Start date: 01/05/14 17:19:00, Stop date: 01/05/14 17:19:00 Start Date: 01/05/14 Stop Date: 01/05/14 Status: CompletedNorco 5/325 oral tablet 1 tab, Route: PO, Drug Form: TAB, Dosing Weight 90.909, kg, ONCE, STAT, Start date: 01/05/14 19:05:00, Stop date: 01/05/14 19:05:00 Start Date: 01/05/14 Stop Date: 01/05/14 Status: CompletedSaline Flush 0.9% 10 mL, Route: IVP, Drug Form: INJ, Dosing Weight 90.909, kg, PRN, PRN Line Flush , Start date: 01/05/14 17:19:00, Duration: 30 day, Stop date: 02/04/14 16:18:00 Notes: (Same as: BD Posiflush) Start Date: 01/05/14 Stop Date: 01/05/14 Status: Discontinued Results ELECTROLYTES Most recent to oldest [Reference Range]: 1 Sodium Lvl [135-145 mEq/L] 138 mEq/L (01/05/14 5:19 PM) Potassium Lvl [3.5-5.1 mEq/L] 3.7 mEq/L (01/05/14 5:19 PM) Chloride Lvl [95-109 mEq/L] 106 mEq/L (01/05/14 5:19 PM) CO2 [24-32 mEq/L] 26 mEq/L (01/05/14 5:19 PM) AGAP [10.0-20.0 mEq/L] 9.7 mEq/L *LOW* (01/05/14 5:19 PM) CHEM PANEL Most recent to oldest [Reference Range]: 1 Creatinine Lvl [0.5-1.4 mg/dL] 1.2 mg/dL (01/05/14 5:19 PM) eGFR 81 mL/min/1.73m2 1 *NA* (01/05/14 5:19 PM) BUN [7-22 mg/dL] 16 mg/dL (01/05/14 5:19 PM) B/C Ratio [6-25] 13 (01/05/14 5:19 PM) Glucose Lvl [70-99 mg/dL] 112 mg/dL 2 *HI* (01/05/14 5:19 PM) Total Protein [6.4-8.4 g/dL] 7.6 g/dL (01/05/14 5:19 PM) Albumin Lvl [3.5-5.0 g/dL] 4.3 g/dL (01/05/14 5:19 PM) Globulin [2.0-4.0 g/dL] 3.3 g/dL (01/05/14:19 PM) A/G Ratio [0.7-1.6] 1.3 (01/05/14 5:19 PM) Calcium Lvl [8.5-10.5 mg/dL] 9.0 mg/dL (01/05/14:19 PM) ALT [0-65 unit/L] 35 unit/L (01/05/14:19 PM) AST [0-37 unit/L] 16 unit/L (01/05/14: PM) Alk Phos [39-136 unit/L] 63 unit/L (01/05/14:19 PM) Bili Total [0.2-1.3 mg/dL] 0.3 mg/dL (01/05/14 5:19 PM) Lipase Lvl [73-393 unit/L] 90 unit/L (01/05/14 5:19 PM) 1Result Comment: The eGFR is calculated [...] values reflect the clinical guidelines of the [place] [employer].CARDIAC ENZYMES Most recent to oldest [Reference Range]: 1 Total CK [12-191 unit/L] 83 unit/L (01/05/14 5:19 PM) CK MB [0.5-3.6 ng/mL] 0.7 ng/mL (01/05/14 5:19 PM) CK MB Index [0.0-2.5] 0.8 (01/05/14 5:19 PM) Troponin-I [0.00-0.40 ng/mL] <0.02 ng/mL (01/05/14 5:19 PM) DRUG SCREEN Most recent to oldest [Reference Range]: 1 U Amph Scr [Negative] Negative *NA* (01/05/14 5:19 PM) U Moni Scr [Negative] Negative *NA* (01/05/14 5:19 PM) U Benzodia Scr [Negative] Negative *NA* (01/05/14 5:19 PM) U Cocaine Scr [Negative] Negative *NA* (01/05/14 5:19 PM) U Opiate Scr [Negative] Positive *ABN* (01/05/14 5:19 PM) U Phencyc Scr [Negative] Negative *NA* (01/05/14 5:19 PM) U Cannab Scr [Negative] Negative *NA* (01/05/14 5:19 PM) UDS Note See Note 3 (01/05/14 5:19 PM) 3Interpretive Data: Drugs reported as positive have not been confirmed by a second method and should be used for medical purposes only. To order confirmation, contact laboratory. note: Below are cut-off [...] ng/mL Methadone 300 ng/mL Urine alcohol 20 mg/dLHEMATOLOGY Most recent to oldest [Reference Range]: 1 WBC [3.7-10.4 K/CMM] 6.3 K/CMM (01/05/14 5:19 PM) RBC [4.70-6.10 M/CMM] 5.27 M/CMM (01/05/14 5:19 PM) Hgb [14.0-18.0 g/dL] 16.3 g/dL (01/05/14 5:19 PM) Hct [42.0-54.0 %] 47.0 % (01/05/14 5:19 PM) MCV [80.0-94.0 fL] 89.3 fL (01/05/14 5:19 PM) MCH [27.0-31.0 pg] 30.9 pg (01/05/14 5:19 PM) MCHC [32.0-36.0 g/dL] 34.6 g/dL (01/05/14 5:19 PM) RDW [11.5-14.5 %] 13.2 % (01/05/14 5:19 PM) Platelet [133-450 K/CMM] 165 K/CMM (01/05/14 5:19 PM) MPV [7.4-10.4 fL] 8.9 fL (01/05/14 5:19 PM) Segs [45.0-75.0 %] 70.5 % (01/05/14 5:19 PM) Lymphocytes [20.0-40.0 %] 22.2 % (01/05/14 5:19 PM) Monocytes [2.0-12.0 %] 5.7 % (01/05/14 5:19 PM) Eosinophils [0.0-4.0 %] 1.0 % (01/05/14 5:19 PM) Basophils [0.0-1.0 %] 0.6 % (01/05/14 5:19 PM) Segs-Bands # [1.5-8.1 K/CMM] 4.5 K/CMM (01/05/14 5:19 PM) Lymphocytes # [1.0-5.5 K/CMM] 1.4 K/CMM (01/05/14 5:19 PM) Monocytes # [0.0-0.8 K/CMM] 0.4 K/CMM (01/05/14 5:19 PM) Eosinophils # [0.0-0.5 K/CMM] 0.1 K/CMM (01/05/14 5:19 PM) Medications Administered During Your Visit No [...]
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
[2018-08-05] MEDS ORDERED: DEXAMETHASONE 10 MG/ML VIAL ONE (21:56)
[2018-08-05] MEDS ORDERED: CYCLOBENZAPRINE 10 MG TAB ONE (21:56)
[2018-08-05] MEDS ORDERED: KETOROLAC 30 MG/ML INJ ONE (22:36)
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
[2018-08-06 00:46] VITALS: TEMP 98
[2018-08-06 00:47] VITALS: BP 121/90; O2SAT 99
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
== END 2018-08-05 23:10 | disposition home or self-care (01) ==
LOC: ER 21:15
DX: S16.1XXA Strain of muscle, fascia and tendon at neck level, initial encounter (principal); M54.12 Radiculopathy, cervical region; V43.62XA Car passenger injured in collision with other type car in traffic accident, initial encounter; Y93.9 Activity, unspecified; Y92.9 Unspecified place or not applicable; F17.210 Nicotine dependence, cigarettes, uncomplicated
CPT/HCPCS: 72125; 96372; 99284; J1100

== ENCOUNTER 2024-03-08 14:48 | Emergency (ER) | payer OTHER ==
[2024-03-08] MEDS ORDERED: ONDANSETRON 4 MG (ODT) TAB ONE (15:12)
[2024-03-08] MEDS ORDERED: MORPHINE 4 MG/ML SYR ONE (15:12)
--- NOTE | 2024-03-08 16:26 | RAD REPORT ---
Exam:Pelvis CLINICAL HISTORY: Pelvic pain FINDINGS: No fracture or dislocation seen
--- NOTE | 2024-03-08 16:27 | RAD REPORT ---
Exam:Hip Right 2 View HISTORY: Right hip pain FINDINGS: No fracture or dislocation seen. If the patient continues to have symptoms to suggest an occult fracture then MRI would be recommended
[2024-03-08] MEDS ORDERED: dexAMETHasone 10 MG/ML VIAL ONE (16:36)
[2024-03-08] MEDS ORDERED: KETOROLAC 30 MG/ML INJ ONE (16:36)
--- NOTE | 2024-03-08 16:42 | ER ---
Nurse's Notes [facility] Name: Demetrius Lugo Jr Age: 43 yrs Sex: Male : 1980 Arrival Date: 03/08/2024 Time: 14:48 Bed 12 Private MD: Diagnosis: Sciatica, right side Presentation: 03/08 14:55 Chief complaint: Patient states: had lower back sx 02/09/24, about 7-8 days ago tripped ko1 over some steps, did not fall but pain started in the back and right hip. Coronavirus screen: At this time, the client does not indicate any symptoms associated with coronavirus-19. Ebola Screen: No symptoms or risks identified at this time. Initial Sepsis Screen: Does the patient meet any 2 criteria? No. Patient's initial sepsis screen is negative. Does the patient have a suspected source of infection? No. Patient's initial sepsis screen is negative. Risk Assessment: Do you want to hurt yourself or someone else? Patient reports no desire to harm self or others. Onset of symptoms is unknown. 14:55 Method Of Arrival: Ambulatory ko1 14:55 Acuity: TANK 3 ko1 Triage Assessment: 15:00 General: Appears uncomfortable, Behavior is calm, cooperative, appropriate for age. ko1 Pain: Complains of pain in low back and right hip. Musculoskeletal: Range of motion: intact in all extremities. Historical: - Allergies: 15:00 No Known Allergies; ko1 - Home Meds: 15:00 methocarbamol 750 mg Oral tablet 1 tab 3 times per day [Active]; ko1 hydrocodone-acetaminophen 7.5-325 mg Oral tablet 1 tab [Active]; - PMHx: 15:00 None; ko1 - PSHx: 15:00 back sugery; ko1 - Immunization history:: Adult Immunizations unknown. - Infectious Disease History:: Denies. - Social history:: Smoking status: Patient reports the use of cigarette tobacco products, smokes one-half pack cigarettes per day. Screenin:32 [facility] ED Fall Risk Assessment (Adult) History of falling in the last 3 months, ld1 including since admission No falls in past 3 months (0 pts) Confusion or Disorientation No (0 pts) Intoxicated or Sedated No (0 pts) Impaired Gait No (0 pts) Mobility Assist Device Used No (0 pt) Altered Elimination No (0 pt) Score/Fall Risk Level 0 - 2 = Low Risk Oriented to surroundings, Maintained a safe environment, Educated pt \T\ family on fall prevention, incl call for assistance when getting out of bed, Assessed \T\ reinforced patient's understanding of fall precautions, Provided non-skid footwear, Hourly rounding (assess needs \T\ fall precautionary measures) done, Used ambulatory aids as needed (educated on \T\ assisted with), Used gait belt as appropriate. Abuse screen: Denies threats or abuse. Denies injuries from another. Nutritional screening: No deficits noted. Tuberculosis screening: No symptoms or risk factors identified. Assessment: 15:31 General: Appears in no apparent distress. uncomfortable, Behavior is calm, cooperative, ld1 appropriate for age. Pain: Complains of pain in pelvis Pain does not radiate. Pain currently is 8 out of 10 on a pain scale. Quality of pain is described as throbbing. Neuro: Level of Consciousness is awake, alert, obeys commands, Oriented to person, place, time, situation, Appropriate for age. Cardiovascular: Capillary refill < 3 seconds Patient's skin is warm and dry. Respiratory: Airway is patent Respiratory effort is even, unlabored. GI: Abdomen is round non-distended. : No signs and/or symptoms were reported regarding the genitourinary system. EENT: No signs and/or symptoms were reported regarding the EENT system. Derm: No signs and/or symptoms reported regarding the dermatologic system. Musculoskeletal: No signs and/or symptoms reported regarding the musculoskeletal system. 16:45 Reassessment: Patient appears in no apparent distress at this time. No changes from ld1 previously documented assessment. Patient and/or family updated on plan of care and expected duration. Pain level reassessed. Patient states symptoms have not improved. Vital Signs: 14:55 BP 147 / 101; Pulse 102; Resp 18; Temp 97.2; Pulse Ox 99% ; ko1 16:45 BP 139 / 98; Pulse 98; Resp 18; Pulse Ox 100% on R/A; Pain 7/10; ld1 16:45 Pain Scale: Adult ld1 ED Course: 14:50 Patient arrived in ED. al6 15:00 Triage completed. ko1 15:00 Arm band placed on right wrist. Patient placed in an exam room, on a stretcher, on ko1 pulse oximetry, Patient notified of wait time. 15:01 Shanelle Pedersen [facility]NP-C [facility]. kb 15:01 Rk Rushing MD is Attending Physician. kb 15:10 Angelina Gerber, RN is Primary Nurse. ld1 15:32 Patient has correct armband on for positive identification. Placed in gown. Bed in low ld1 position. Call light in reach. Side rails up X2. care management coordinator on. Pulse ox on. NIBP on. Door closed. Warm blanket given. Pillow given. 15:32 No provider procedures requiring assistance completed. ld1 16:01 Pelvis XRAY In Process Unspecified. EDMS 16:01 Hip Right 2 View XRAY In Process Unspecified. EDMS 16:45 Patient did not have IV access during this emergency room visit. ld1 Administered Medications: 15:18 Drug: morphine IM 4 mg IM once Route: IM; Site: right deltoid; ld1 16:44 Follow up: Response: No adverse reaction ld1 15:18 Drug: Ondansetron Oral Disintegrating Tablet Oral Disintegrating Tablet 4 mg PO once ld1 Route: PO; 16:44 Follow up: Response: No adverse reaction ld1 16:44 Drug: Ketorolac IM 30 mg IM once Route: IM; Site: left deltoid; ld1 16:44 Follow up: Response: No adverse reaction ld1 16:44 Drug: Dexamethasone IM 10 mg IM once Route: IM; Site: right deltoid; ld1 16:44 Follow up: Response: No adverse reaction ld1 Medication: 16:45 VIS not applicable for this client. ld1 Outcome: 16:42 Discharge ordered by . kb 16:45 Discharged to home ambulatory, ld1 16:45 Condition: stable 16:45 Discharge instructions given to patient, Instructed on discharge instructions, follow up and referral plans. Demonstrated understanding of instructions, follow-up care, medications, Prescriptions given X 2, 16:45 Patient left the ED. ld1 Signatures: Dispatcher [employer] EDMS Shanelle Pedersen FNP-C FNP-Angelina Lafleur, RN RN ld1 Danya Moya RN RN ko1 Maryan Oscar6
--- NOTE | 2024-03-08 16:42 | EDPHYS ---
Physician Documentation [facility] Name: Demetrius Lugo Jr Age: 43 yrs Sex: Male : 1980 Arrival Date: 03/08/2024 Time: 14:48 Bed 12 Private MD: ED Physician Rk Rushing HPI: 03/08 20:46 This 43 yrs old Male presents to ER via Ambulatory with complaints of Back Pain, Hip kb Pain. 20:46 Pt is a 43 year old male who presents for pain to right lower back that radiates down kb buttock and leg. States it started 8 days ago when he stepped backwards and tripped over a step stool. States he did not fall, but he twisted his back. Denies numbness or tingling. States he had surgery on L5 at the beginning of the month, but that is not where his pain is at this time. . Historical: - Allergies: 15:00 No Known Allergies; ko1 - Home Meds: 15:00 methocarbamol 750 mg Oral tablet 1 tab 3 times per day [Active]; ko1 hydrocodone-acetaminophen 7.5-325 mg Oral tablet 1 tab [Active]; - PMHx: 15:00 None; ko1 - PSHx: 15:00 back sugery; ko1 - Immunization history:: Adult Immunizations unknown. - Infectious Disease History:: Denies. - Social history:: Smoking status: Patient reports the use of cigarette tobacco products, smokes one-half pack cigarettes per day. ROS: 20:43 Constitutional: As per HPI kb Exam: 20:43 Constitutional: This is a well developed, well nourished patient who is awake, alert, kb and in no acute distress. Head/Face: Normocephalic, atraumatic. ENT: Moist Mucous membranes Cardiovascular: Regular rate Respiratory: Respirations even and unlabored. No increased work of breathing. Talking in full sentences Skin: Warm, dry with normal turgor. Normal color. Neuro: Awake and alert, GCS 15, oriented to person, place, time, and situation. 20:43 Back: pain, that is moderate, of the right low back, ROM is painful, CVA tenderness, is absent, healing incision to lumbar area without swelling, erythema, drainage, 20:43 Musculoskeletal/extremity: Extremities: grossly normal except: noted in the right gluteus christiane and right hip: pain, tenderness, ROM: intact in all extremities, Circulation is intact in all extremities. Sensation intact. Weight bearing: able to fully bear weight, Vital Signs: 14:55 BP 147 / 101; Pulse 102; Resp 18; Temp 97.2; Pulse Ox 99% ; ko1 16:45 BP 139 / 98; Pulse 98; Resp 18; Pulse Ox 100% on R/A; Pain 7/10; ld1 16:45 Pain Scale: Adult ld1 MDM: 15:02 Medical Screening Exam initiated kb 20:44 Data reviewed: vital signs, nurses notes. kb 20:45 Differential diagnosis: strain, sciatica, fracture. Test considered but Not performed: kb CT: ct lumbar spine considered but pt has no new pain to lumbar spine. . Historians other than the Patient: Spouse/Significant Other: . Counseling: I had a detailed discussion with the patient and/or guardian regarding the historical points, exam findings, and any diagnostic results supporting the discharge/admit diagnosis, radiology results, the need for outpatient follow up, a family practitioner, to return to the emergency department if symptoms worsen or persist or if there are any questions or concerns that arise at home. 03/08 15:06 Order name: Pelvis XRAY; Complete Time: 16:30 kb 03/08 15:06 Order name: Hip Right 2 View XRAY; Complete Time: 16:30 kb Administered Medications: 15:18 Drug: morphine IM 4 mg IM once Route: IM; Site: right deltoid; ld1 16:44 Follow up: Response: No adverse reaction ld1 15:18 Drug: Ondansetron Oral Disintegrating Tablet Oral Disintegrating Tablet 4 mg PO once ld1 Route: PO; 16:44 Follow up: Response: No adverse reaction ld1 16:44 Drug: Ketorolac IM 30 mg IM once Route: IM; Site: left deltoid; ld1 16:44 Follow up: Response: No adverse reaction ld1 16:44 Drug: Dexamethasone IM 10 mg IM once Route: IM; Site: right deltoid; ld1 16:44 Follow up: Response: No adverse reaction ld1 Disposition Summary: 03/08/24 16:42 Discharge Ordered Notes: Location: Home Condition: Stable kb Diagnosis - Sciatica, right side kb Followup: kb - With: Emergency Department - When: As needed - Reason: Worsening of condition Followup: kb - With: Private Physician - When: 2 - 3 days - Reason: Recheck today's complaints, Continuance of care, Re-evaluation by your physician Discharge Instructions: - Discharge Summary Sheet kb - Sciatica, [id number] kb - Back Exercises, [id number] kb Forms: - Medication Reconciliation Form kb - Antibiotic Education kb - Prescription Opioid Use kb - Patient Portal Instructions kb - Leadership Thank You Letter kb Prescriptions: - Prednisone 20 mg Oral Tablet - take 1 tablet ORAL route once daily for 5 days; 5 tablet; Refills: 0, Product kb Selection Permitted Addendum: 03/15/2024 06:58 Co-signature as Attending Physician, Rk Rushing MD I reviewed the patient's care r n provided by the Advanced Practice Provider and agree with the diagnosis and treatment plan. Signatures: Dispatcher [employer] EDShanelle Guaman, REPAIR SERVICE DISPATCHER-C REPAIR SERVICE DISPATCHER-Ckb Rk Rushing MD MD rn Sims, Lauren RN RN ld1 Danya Moya RN RN ko1 Corrections: (The following items were deleted from the chart) 03/08 20:45 20:43 Back: pain, that is moderate, of the right low back, ROM is painful, CVA kb tenderness, is absent, kb
[2024-03-08 23:19] VITALS: TEMP 97.2
[2024-03-08 23:20] VITALS: BP 139/98; O2SAT 100
== END 2024-03-08 16:45 | disposition home or self-care (01) ==
LOC: ER 14:48
DX: M54.31 Sciatica, right side (principal)
CPT/HCPCS: 72170; 73502; 96372; 99284; Q0162; J1100

== ENCOUNTER 2024-05-15 18:11 | Emergency (ER) | payer OTHER ==
[2024-05-15] MEDS ORDERED: NA CHLORIDE 0.9% 1,000 ML ONE (19:17)
[2024-05-15 19:58] LABS: Absolute Eosinophils 0.1 K/uL (0-0.5); Absolute Lymphocytes (CBC) 0.6 K/uL (0.7-4.9); Absolute Monocytes 0.6 K/uL (0.1-1.3); Absolute Neutrophil 4.7 K/uL (1.8-8.0); Basophils % 0.8 % (0-1.3); Eosinophils % 0.9 % (0-4.4); Hematocrit 49.2 % (39.6-49.0); Hemoglobin 16.6 g/dL (13.6-17.9); Lymphocytes % 10.4 % (15.3-44.8); MCH 34.4 pg (27.0-35.0); MCHC 33.7 g/dL (32.0-36.0); Monocytes % 9.6 % (3.3-12.3); Neutrophils % 78.3 % (41.7-73.7); Platelets 122 thou/uL (152-406); RBC Red Blood Cell Count 4.82 M/uL (4.33-5.43); Red Cell Distribution Width 16.7 % (12.1-15.2)
[2024-05-15 20:09] LABS: PT Prothrombin Time 14.8 SECONDS (10-13.0); PTT, Activated Partial Thromb 36.7 SECONDS (27.2-37.4); Protime INR 1.32
[2024-05-15 20:19] LABS: Albumin 2.7 g/dL (3.4-5.0); Albumin/Globulin Ratio 0.6 (1.1-1.8); Anion Gap 11.6 mEq/L (5.0-15.0); Bilirubin Total 9.7 mg/dL (0.2-1.0); Globulin 4.6 g/dL (2.3-3.5); Potassium 3.6 mEq/L (3.5-5.1); Protein, Total 7.3 g/dL (6.4-8.2)
[2024-05-15] MEDS ORDERED: ONDANSETRON 4 MG/2 ML VIAL ONE (20:57)
--- NOTE | 2024-05-15 22:06 | RAD REPORT ---
EXAMINATION: CT ABDOMEN AND PELVIS WITH CONTRAST CLINICAL INDICATION: Abdominal pain TECHNIQUE: CT abdomen and pelvis was performed, after the administration of 100 cc Isovue-300.. Sagit tito and coronal reconstructions were obtained. One or more of the following dose reduction techniques were used: Automated exposure control, adjustment of the mA and kV according to patient si ze, and iterative reconstruction. Unless otherwise specified, incidental findings do not require dedicated imaging follow-up. [id number]. Oral contrast was not given which limits evaluation of bowel and appendix. COMPARISON: .2014 FINDINGS: Marked fatty liver. Liver is enlarged. Spleen is mildly to moderately enlarged. Pancreas, adrenals and kidneys unremarkable. Normal appendix. Post surgical changes lumbar spine Small bilateral inguinal hernias No evidence of diverticulitis. : IMPRESSION: Marked fatty liver Moderate hepatomegaly Mild to moderate splenomegaly
--- NOTE | 2024-05-15 22:25 | ER ---
Nurse's Notes [facility] Name: Demetrius Lugo Jr Age: 43 yrs Sex: Male : 1980 Arrival Date: 05/15/2024 Time: 18:11 Bed 5 Private MD: Diagnosis: Acute hepatic failure Presentation: 05/15 18:30 Chief complaint: Patient states: ABDOMINAL PAIN FOR MONTHS, VOMITING STARTED X 2 WEEKS, db DIARRHEA STARTED YESTERDAY. YELLOW EYES STARTED THIS AM. STATES DRINKS 8 SHOTS A DAY OF WHISKEY. Coronavirus screen: Client denies travel out of the [place] in the last 14 days. At this time, the client does not indicate any symptoms associated with coronavirus-19. Ebola Screen: Patient negative for fever greater than or equal to 101.5 degrees Fahrenheit, and additional compatible Ebola Virus Disease symptoms Patient denies exposure to infectious person. Patient denies travel to an Ebola-affected area in the 21 days before illness onset. No symptoms or risks identified at this time. 18:30 Method Of Arrival: Ambulatory db 18:30 Initial Sepsis Screen: Does the patient meet any 2 criteria? No. Patient's initial db sepsis screen is negative. Does the patient have a suspected source of infection? No. Patient's initial sepsis screen is negative. Risk Assessment: Do you want to hurt yourself or someone else? Patient reports no desire to harm self or others. Onset of symptoms was May 15, 2024. 18:30 Acuity: TANK 2 db Triage Assessment: 18:33 General: Appears in no apparent distress. uncomfortable, Behavior is calm, cooperative. db Pain: Complains of pain in abdomen. Neuro: Level of Consciousness is awake, alert, obeys commands, Oriented to person, place, time, situation. Respiratory: Airway is patent Respiratory effort is even, unlabored, Respiratory pattern is regular, symmetrical. GI: Reports lower abdominal pain, upper abdominal pain, diarrhea, nausea, vomiting. GI: Abdomen is distended. Historical: - Allergies: 18:33 No Known Allergies; db - Home Meds: 18:33 metoprolol tartrate 25 mg oral tablet daily [Active]; db - PMHx: 18:33 TACHYCARDIA; db - PSHx: 18:33 back sugery; db - Immunization history:: Adult Immunizations unknown. - Infectious Disease History:: Denies. - Social history:: Smoking status: Patient reports the use of cigarette tobacco products, smokes one-half pack cigarettes per day, Patient uses alcohol, on a daily basis. Screenin:00 [facility] ED Fall Risk Assessment (Adult) History of falling in the last 3 months, cp4 including since admission No falls in past 3 months (0 pts) Confusion or Disorientation No (0 pts) Intoxicated or Sedated No (0 pts) Impaired Gait No (0 pts) Mobility Assist Device Used No (0 pt) Altered Elimination No (0 pt) Score/Fall Risk Level 0 - 2 = Low Risk Oriented to surroundings, Maintained a safe environment, Assessed \T\ reinforced patient's understanding of fall precautions, Hourly rounding (assess needs \T\ fall precautionary measures) done. Abuse screen: Denies threats or abuse. Denies injuries from another. Nutritional screening: No deficits noted. Tuberculosis screening: No symptoms or risk factors identified. Assessment: 19:59 General: Appears in no apparent distress. uncomfortable, Behavior is calm, cooperative, cp4 appropriate for age. 20:00 Pain: Complains of pain in lumbar area and abdomen Pain does not radiate. Pain cp4 currently is 8 out of 10 on a pain scale. Neuro: Level of Consciousness is awake, alert, obeys commands, Oriented to person, place, time, situation. Cardiovascular: Patient's skin is warm and dry. Rhythm is sinus rhythm. Respiratory: Airway is patent Respiratory effort is even, unlabored. GI: Abdomen is round non-distended, Bowel sounds present X 4 quads. Abd is soft and non tender X 4 quads. : No signs and/or symptoms were reported regarding the genitourinary system. EENT: Reports yellow sceleras. Derm: No signs and/or symptoms reported regarding the dermatologic system. Musculoskeletal: No signs and/or symptoms reported regarding the musculoskeletal system. 21:38 Reassessment: Patient appears in no apparent distress at this time. Patient and/or cp4 family updated on plan of care and expected duration. Pain level reassessed. Patient is alert, oriented x 3, equal unlabored respirations, skin warm/dry/pink. Vital Signs: 18:30 BP 152 / 108; Pulse 100; Resp 18; Temp 98.2; Pulse Ox 99% ; Weight 88.45 kg; Height 5 db ft. 7 in. ; Pain 8/10; 19:59 BP 152 / 105; Pulse 85; Resp 18; Pulse Ox 99% ; cp4 21:58 BP 132 / 96; Pulse 91; Resp 18; Pulse Ox 100% ; cp4 22:59 BP 141 / 92; Pulse 98; Resp 18; Pulse Ox 97% ; cp4 23:11 BP 140 / 98; Pulse 100; Resp 22; Pulse Ox 99% ; br2 18:30 Body Mass Index 30.54 (88.45 kg, 170.18 cm) db 18:30 Pain Scale: Adult db ED Course: 18:15 Patient arrived in ED. al6 18:33 Triage completed. db 18:34 Lisset Gillespie PA-C is PHCP. sb4 18:34 Tom Brown MD is Attending Physician. sb4 18:35 Arm band placed on Patient placed in an exam room. db 19:22 First set of blood cultures drawn by me. oe 19:39 Second set of blood cultures drawn by me. oe 19:42 Elizabeth Menjivar, RN is Primary Nurse. br2 19:46 Inserted saline lock: 22 gauge in right forearm, using aseptic technique. Blood oe collected. Flushed with 10 mL NS. 19:47 Lipase Sent. oe 19:47 ETOH Level Sent. oe 19:47 Hepatitis Panel Sent. oe 19:47 CK Sent. oe 19:47 CBC with Diff Sent. oe 19:47 CMP Sent. oe 19:47 Lactate w/ 2H reflex if indic. Sent. oe 19:47 Blood Culture Adult (2) Sent. oe 19:47 Protime (+inr) Sent. oe 19:47 Ptt, Activated Sent. oe 20:00 Placed in gown. Bed in low position. Call light in reach. Side rails up X 1. cp4 20:00 No provider procedures requiring assistance completed. cp4 21:37 CT Abd/Pelvis - IV Contrast Only In Process Unspecified. EDMS 22:32 AMMONIA Sent. oe 22:33 Initiated transfer with Ian at [facility]. rv1 22:57 Doc to Doc with hospitalist at [facility]. rv1 23:[address] Koehler to [facility] Rm [id number]. Report # [id number]. rv1 23:47 Provided Education on: transfer. cp4 23:47 Patient transferred, IV remains in place. cp4 Administered Medications: 19:42 Drug: NS 0.9% IV 500 ml IV at bolus once; to be given as a bolus over 30 minutes Route: cp4 IV; Rate: bolus; Site: right antecubital; 20:59 Follow up: IV Status: Completed infusion cp4 20:59 Drug: Ondansetron IVP 4 mg IVP once; over 2 minutes Route: IVP; Site: right antecubital;cp4 22:41 Follow up: Response: No adverse reaction; Nausea is decreased cp4 22:40 Drug: morphine IVP or IV 4 mg IVP once over 4 mins Route: IVP; Infused Over: 4 mins; cp4 Site: right antecubital; 23:38 Follow up: Response: No adverse reaction; Pain is decreased cp4 Medication: 20:00 VIS not applicable for this client. cp4 Outcome: 22:24 ER care complete, transfer ordered by . sb4 23:47 Transferred by ground EMS to [facility], Transfer form completed. cp4 X-rays sent w/ patient. 23:47 Condition: stable 23:47 Instructed on the need for transfer, 23:48 Patient left the ED. cp4 Signatures: Dispatcher [employer] EDMS Puneet Ochoa Danielle RN RN Lisset Nugent, PA-C PA-C sb4 Justine Barrera rv1 Tessa Paul cp4 Elizabeth Menjivar RN RN br2 Maryan Oscar al6 Corrections: (The following items were deleted from the chart) 18:33 18:30 BP 152 / 108; Pulse 100bpm; Resp 18bpm; Pulse Ox 99%; Temp 98.2F; 88.45 kg; db Height 5 ft. 7 in.; BMI: 30.5; Pain 8/10, Adult; db
--- NOTE | 2024-05-15 22:25 | EDPHYS ---
Physician Documentation [facility] Name: Demetrius Lugo Jr Age: 43 yrs Sex: Male : 1980 Arrival Date: 05/15/2024 Time: 18:11 Bed 5 Private MD: ED Physician Tom Brown HPI: 05/15 18:54 This 43 yrs old Male presents to ER via Ambulatory with complaints of Abdominal Pain, sb4 Vomiting, Diarrhea. 18:54 Patient reports dark urine x 1 month and vomiting for a week and a half. He initially sb4 thought that his symptoms were secondary to pain, as he has had a lot of complications with a lower back surgery. However, he started experiencing diffuse abdominal pain and bloating and this morning his noticed that his eyes were yellow. He states that his skin looks mildly yellow as well. He states that he is a heavy alcohol drinker, last drink this morning. Historical: - Allergies: 18:33 No Known Allergies; db - Home Meds: 18:33 metoprolol tartrate 25 mg oral tablet daily [Active]; db - PMHx: 18:33 TACHYCARDIA; db - PSHx: 18:33 back sugery; db - Immunization history:: Adult Immunizations unknown. - Infectious Disease History:: Denies. - Social history:: Smoking status: Patient reports the use of cigarette tobacco products, smokes one-half pack cigarettes per day, Patient uses alcohol, on a daily basis. ROS: 18:54 Constitutional: Negative for fever, chills, and weight loss, sb4 18:54 Eyes: Positive for icterus, 18:54 Abdomen/GI: Positive for abdominal pain, nausea, vomiting, and diarrhea, 18:54 Back: Positive for pain at rest, of the lumbar area, 18:54 : Positive for Dark urine, 18:54 Skin: Positive for jaundice, 18:54 All other systems are negative, Exam: 18:54 Head/Face: Normocephalic, atraumatic. Cardiovascular: Regular rate and rhythm with a sb4 normal S1 and S2. Respiratory: No increased work of breathing, no retractions or nasal flaring. 18:54 Constitutional: The patient appears in no acute distress, alert, awake, 18:54 Eyes: Sclera: icterus, is present, 18:54 Abdomen/GI: Inspection: distension, that is mild, Diffusely, Bowel sounds: normal, Palpation: soft, mild abdominal tenderness, Diffusely, 18:54 Skin: Appearance: Color: jaundiced, Mild, Vital Signs: 18:30 BP 152 / 108; Pulse 100; Resp 18; Temp 98.2; Pulse Ox 99% ; Weight 88.45 kg; Height 5 db ft. 7 in. ; Pain 8/10; 19:59 BP 152 / 105; Pulse 85; Resp 18; Pulse Ox 99% ; cp4 21:58 BP 132 / 96; Pulse 91; Resp 18; Pulse Ox 100% ; cp4 22:59 BP 141 / 92; Pulse 98; Resp 18; Pulse Ox 97% ; cp4 23:11 BP 140 / 98; Pulse 100; Resp 22; Pulse Ox 99% ; br2 18:30 Body Mass Index 30.54 (88.45 kg, 170.18 cm) db 18:30 Pain Scale: Adult db MDM: 18:34 Medical Screening Exam initiated sb4 22:31 Data reviewed: vital signs, nurses notes, lab test result(s), EKG, radiologic studies, sb4 I have discussed the patient's presentation/case with the attending Emergency Department Physician;. Historians other than the Patient: Spouse/Significant Other: . Counseling: I had a detailed discussion with the patient and/or guardian regarding the historical points, exam findings, and any diagnostic results supporting the discharge/admit diagnosis, the presence of at least one elevated blood pressure reading (>120/80) during this emergency department visit, lab results, radiology results, the need to transfer to another facility, [facility] does not immediately have the required specialist. 05/15 18:42 Order name: Blood Culture Adult (2) sb4 05/15 18:42 Order name: CBC with Diff; Complete Time: 20:01 sb4 05/15 18:42 Order name: CMP; Complete Time: 20:20 sb4 05/15 18:42 Order name: Lactate w/ 2H reflex if indic.; Complete Time: 20:20 sb4 05/15 18:42 Order name: Protime (+inr); Complete Time: 20:10 sb4 03 18:42 Order name: Ptt, Activated; Complete Time: 20:10 sb4 05/15 18:42 Order name: Urinalysis w/ reflexes; Complete Time: 22:56 sb4 05/15 18:42 Order name: CK; Complete Time: 20:20 sb4 05/15 18:42 Order name: Hepatitis Panel; Complete Time: 22:49 sb4 05/15 18:42 Order name: ETOH Level; Complete Time: 20:21 sb4 05/15 18:42 Order name: Lipase; Complete Time: 20:20 sb4 05/15 19:57 Order name: Glucose, Ancillary Testing; Complete Time: 19:59 EDMS 05/15 20:52 Order name: Miscellaneous Test Lab; Complete Time: 22:37 EDMS 05/15 22:22 Order name: AMMONIA; Complete Time: 23:05 sb4 05/15 20:20 Order name: CT Abd/Pelvis - IV Contrast Only; Complete Time: 22:10 sb4 05/15 18:42 Order name: EKG; Complete Time: 18:42 sb4 05/15 18:42 Order name: Accucheck; Complete Time: 19:55 sb4 05/15 18:42 Order name: Cardiac monitoring; Complete Time: 19:43 sb4 05/15 18:42 Order name: EKG - Nurse/Tech; Complete Time: 19:55 sb4 05/15 18:42 Order name: IV Saline Lock - Large Bore; Complete Time: 19:43 sb4 05/15 18:42 Order name: Labs collected and sent; Complete Time: 19:43 sb4 05/15 18:42 Order name: O2 Per Protocol; Complete Time: 19:43 sb4 05/15 18:42 Order name: O2 Sat Monitoring; Complete Time: 19:43 sb4 05/15 18:42 Order name: Vital Signs; Complete Time: 19:43 sb4 EC:02 Rate is 82 beats/min. Rhythm is regular, Normal Sinus Rhythm. IL interval is normal at sb4 122 msec. QRS interval is normal at 90 msec. QT interval is normal. No Q waves. T waves are Normal. No ST changes noted. Clinical impression: Normal ECG. Interpreted by me. Reviewed by me. Administered Medications: 19:42 Drug: NS 0.9% IV 500 ml IV at bolus once; to be given as a bolus over 30 minutes Route: cp4 IV; Rate: bolus; Site: right antecubital; 20:59 Follow up: IV Status: Completed infusion cp4 20:59 Drug: Ondansetron IVP 4 mg IVP once; over 2 minutes Route: IVP; Site: right antecubital;cp4 22:41 Follow up: Response: No adverse reaction; Nausea is decreased cp4 22:40 Drug: morphine IVP or IV 4 mg IVP once over 4 mins Route: IVP; Infused Over: 4 mins; cp4 Site: right antecubital; 23:38 Follow up: Response: No adverse reaction; Pain is decreased cp4 Disposition Summary: 05/15/24 22:24 Transfer Ordered Notes: Transfer Location: [facility] sb4 Reason: Higher level of care sb4 Condition: Fair sb4 Problem: new sb4 Symptoms: are unchanged sb4 Accepting Physician: hepatology(05/15/24 23:48) cp4 Diagnosis - Acute hepatic failure sb4 Forms: - Medication Reconciliation Form sb4 - SBAR form sb4 Signatures: Dispatcher [employer] EDMS Anyi Mcmahon RN RN Lisset Nugent PA-C PAAnirudh sb4 Tessa Paul cp4 Corrections: (The following items were deleted from the chart) 18:42 18:42 BLOOD CULTURE*+BA.LAB.BRZ ordered. EDMS EDMS 18:42 18:42 CBC+H.LAB.BRZ ordered. EDMS EDMS 18:42 18:42 COMPREHENSIVE METABOLIC PANEL+C.LAB.BRZ ordered. EDMS EDMS 18:42 18:42 LACTATE+C.LAB.BRZ ordered. EDMS EDMS 18:42 18:42 PROTIME (+INR)+COAG.LAB.BRZ ordered. EDMS EDMS 18:42 18:42 PTT, ACTIVATED+COAG.LAB.BRZ ordered. EDMS EDMS 18:42 18:42 Urinalysis+U.LAB.BRZ ordered. EDMS EDMS 18:42 18:42 CREATINE PHOSPHOKINASE+C.LAB.BRZ ordered. EDMS EDMS 18:42 18:42 Acute Hepatitis Panel+SC.LAB.BRZ ordered. EDMS EDMS 18:42 18:42 ETHANOL+C.LAB.BRZ ordered. EDMS EDMS 18:42 18:42 LIPASE+C.LAB.BRZ ordered. EDMS EDMS 20:20 20:20 Abdomen Pelvis W Con+CT.RAD.BRZ ordered. EDMS EDMS 23:48 22:24 hepatology sb4 cp4
[2024-05-15] MEDS ORDERED: MORPHINE 4 MG/ML SYR ONE (22:32)
[2024-05-15 22:46] LABS: Hepatitis B Core IgM Nonreactive (Nonreactive); Hepatitis B surface AG Interp. Nonreactive (Nonreactive); Hepatitis C Virus Ab Nonreactive (Nonreactive)
[2024-05-15 22:48] LABS: HBsAG Nonreactive Report Report
[2024-05-15 22:53] LABS: Sqamous Epithelial None Seen /HPF (None Seen); Urine Bacteria None Seen /HPF (<20); Urine Bilirubin 1+ (Negative); Urine Blood Negative (Negative); Urine Clarity Clear (Clear); Urine Color Dark-Yellow (Yellow); Urine Culture Reflex Order NOT NEEDED; Urine Glucose NEGATIVE (Negative); Urine Ketones TRACE (Negative); Urine Microscopic Reflex YN ORDER UMIC; Urine Mucus Slight /HPF (None Seen); Urine Nitrite NEGATIVE (Negative); Urine Protein TRACE (Negative); Urine RBC <5 /HPF (None Seen); Urine Urobilinogen 2+ (Normal); Urine WBC <5 /HPF (<5)
[2024-05-15 22:55] LABS: Specific Gravity > 1.030 (1.005-1.030)
[2024-05-15 23:52] VITALS: TEMP 98.2
[2024-05-15 23:57] VITALS: BP 140/98; O2SAT 99
--- NOTE | 2024-05-17 11:04 | EKG ---
Test Date: 2024-05-15 Test Time: 18:50:57 Anesthesiologist Assistant Certified: [place] MEASUREMENT RESULTS: Intervals: Rate: 82 MA: 122 QRSD: 90 QT: 362 QTc: 422 [place]: P: 19 MA: 122 QRS: 21 T: 6 INTERPRETIVE STATEMENTS: Normal sinus rhythm Normal ECG Compared to ECG 12/30/2012 11:35:10 Sinus tachycardia no longer present Electronically Signed On 05-17-24 10:59:09 CDT by Xavi Banks
== END 2024-05-15 23:48 | disposition short-term general hospital (02) ==
LOC: ER 18:11
DX: K72.00 Acute and subacute hepatic failure without coma (principal); F17.210 Nicotine dependence, cigarettes, uncomplicated
CPT/HCPCS: 96361; 93005; 87040 ×2; 85025; 81001; 36415; 82140; 82550; 85610; 82947; 83605; 85730; 83690; 80053; 80074; 74177; 96375; 96374; 99285; 82077; Q9967; J2405; J7030

== ENCOUNTER 2024-07-19 04:41 | Emergency (ER) | payer OTHER ==
--- NOTE | 2024-07-19 06:19 | RAD REPORT ---
EXAMINATION: CT HEAD WITHOUT IV CONTRAST CLINICAL INDICATION: Male, 43 years old. HEADACHE TECHNIQUE: Axial CT images from the skull base to the vertex without intravenous contrast. Coronal an d sagittal reformatted images were created from the data set. One or more of the following dose reduction techniques were used: Automated exposure control, adjustment of the mA and/or kV according to patient size, and/or iterative reconstruction. Unless otherwise specified, incidental findings do not require dedicated imaging follow-up. [id number]. COMPARISON: No prior exam. FINDINGS: INTRACRANIAL: No acute intracranial hemorrhage. No hydrocephalus. No mass effect or midline shift. No significant white matter disease. VASCULATURE: No visualized abnormalities in the arteries or dural venous sinuses. SCALP/SKULL: No significant soft tissue or osseous abnormalities. SINUSES: The visualized paranasal sinuses are predominantly clear. No mastoid effusion. IMPRESSION: No acute intracranial abnormality. Electronically signed by: Omar Cross MD 07/19/2024 06:13 AM T Due to temporary technical issues with the PACS/[employer] reporting system, reports are being ale d by the in-house radiologist without review as a courtesy to ensure prompt reporting the interpreting radiologist is fully responsible for the content of the report. Transcribed Date/Time: 07/19/2024 6:19 AM
--- NOTE | 2024-07-19 06:31 | RAD REPORT ---
EXAM: XR CHEST 1 VIEW HISTORY: 43 years Male CHEST PAIN COMPARISON: None. FINDINGS: LUNGS/PLEURA: The lungs are clear. No pleural effusions or pneumothorax. No pulmonary edema. CARDIAC/MEDIASTINUM: The cardiac silhouette is within normal limits. UPPER ABDOMEN: No significant abnormality. BONES: No acute abnormality. LINES/TUBES/OTHER: N/A IMPRESSION: No acute cardiopulmonary disease. Electronically signed by: Omar Cross MD 07/19/2024 06:24 AM CDT Due to temporary technical issues with the PACS/[employer] reporting system, reports are being ale d by the in-house radiologist without review as a courtesy to ensure prompt reporting the interpreting radiologist is fully responsible for the content of the report. Transcribed Date/Time: 07/19/2024 6:31 AM
[2024-07-19] MEDS ORDERED: droPERidol 5 MG/2 ML VIAL ONE (06:35)
[2024-07-19] MEDS ORDERED: KETOROLAC 30 MG/ML INJ ONE (06:35)
[2024-07-19] MEDS ORDERED: ONDANSETRON 4 MG/2 ML VIAL ONE (06:35)
[2024-07-19] MEDS ORDERED: MORPHINE 4 MG/ML SYR ONE (06:35)
[2024-07-19] MEDS ORDERED: NA CHLORIDE 0.9% 1,000 ML ONE (06:36)
[2024-07-19 06:42] LABS: Absolute Basophils 0.1 K/uL (0-0.5); Absolute Eosinophils 0.1 K/uL (0-0.5); Absolute Monocytes 0.5 K/uL (0.1-1.3); Absolute Neutrophil 3.7 K/uL (1.8-8.0); Basophils % 1.1 % (0-1.3); Eosinophils % 1.8 % (0-4.4); Hematocrit 46.9 % (39.6-49.0); Hemoglobin 16.2 g/dL (13.6-17.9); Lymphocytes % 18.5 % (15.3-44.8); MCH 30.2 pg (27.0-35.0); MCHC 34.6 g/dL (32.0-36.0); MCV 87.2 fL (80-100); MPV 8.7 fL (7.6-11.3); Monocytes % 9.7 % (3.3-12.3); Neutrophils % 68.9 % (41.7-73.7); Nucleated Red Blood Cells % 0.4 % (0-0); Platelets 134 thou/uL (152-406); RBC Red Blood Cell Count 5.38 M/uL (4.33-5.43); Red Cell Distribution Width 14.6 % (12.1-15.2)
[2024-07-19 07:02] LABS: Barbiturates NEGATIVE (NEGATIVE); Benzodiazepines NEGATIVE (NEGATIVE); Cocaine NEGATIVE (NEGATIVE); METHAMPHETAM NEGATIVE (NEGATIVE); Methadone NEGATIVE (NEGATIVE); Opiates POSITIVE (NEGATIVE); Phencyclidine NEGATIVE (NEGATIVE); THC Cannibis NEGATIVE (NEGATIVE)
[2024-07-19 07:05] LABS: Albumin 3.4 g/dL (3.4-5.0); Albumin/Globulin Ratio 0.8 (1.1-1.8); Anion Gap 13.6 mEq/L (5.0-15.0); Bilirubin Direct 0.5 mg/dL (0-0.2); Bilirubin Indirect, Calculated 0.5 mg/dL (0.2-0.8); Globulin 4.3 g/dL (2.3-3.5); Magnesium 1.9 mg/dL (1.6-2.4); Potassium 3.6 mEq/L (3.5-5.1); Protein, Total 7.7 g/dL (6.4-8.2); Troponin High Sensitivity 32.4 pg/mL (<58.9)
[2024-07-19] MEDS ORDERED: LORazepam 2 MG/ML VIAL ONE (07:09)
[2024-07-19 07:18] LABS: PT Prothrombin Time 13.7 SECONDS (10-13.0); Protime INR 1.21
--- NOTE | 2024-07-19 07:53 | EDPHYS ---
Physician Documentation [facility] Name: Demetrius Lugo Jr Age: 43 yrs Sex: Male : 1980 Arrival Date: 07/19/2024 Time: 04:41 Bed 2 Private MD: ED Physician Derek Baez HPI: 07/19 04:52 This 43 yrs old Male presents to ER via Unassigned with complaints of High sp4 heart rate, Headache, Shortness Of Breath. 07:41 43-year-old male with history of alcohol use, chronic back pain history of recent sp4 hepatitis, presents with racing heart, elevated blood pressure moderate headache worsening back pain. Patient had recent L4-L5 disc resection by surgeon in [place] in May. Patient currently managed for pain with hydrocodone 10 3 times daily, metoprolol and Robaxin.. Historical: - Allergies: 05:43 No Known Allergies; jb4 - Home Meds: 05:43 hydrocodone-acetaminophen 7.5-325 mg Oral tablet 1 tab [Active]; methocarbamol 750 mg jb4 Oral tablet 1 tab 3 times per day [Active]; metoprolol tartrate 25 mg Oral tablet daily [Active]; - PMHx: 05:43 Tachycardia; liver failure (back sugery); jb4 - PSHx: 05:43 back sugery; jb4 - Immunization history:: Adult Immunizations up to date. - Infectious Disease History:: Denies. - Social history:: Smoking status: Patient reports the use of cigarette tobacco products, smokes .25 packs per day, Patient uses alcohol, occasionally. - Family history:: not pertinent. ROS: 07:41 Constitutional: Negative for fever, chills, and weight loss, positive for back pain, sp4 positive for headache, positive for racing heart, positive for elevated blood pressure positive for feeling unwell overall 07:41 All other systems are negative, Exam: 07:41 Constitutional: This is a well developed, well nourished patient who is awake, alert, sp4 uncomfortable appearing Head/Face: Normocephalic, atraumatic. Eyes: Pupils equal round and reactive to light, extra-ocular motions intact. Lids and lashes normal. Conjunctiva and sclera are not injected. Cornea within normal limits. Periorbital areas with no swelling, redness, or edema. ENT: Nares patent. No nasal discharge, no septal abnormalities noted. Tympanic membranes are normal and external auditory canals are clear. Oropharynx with no redness, swelling, or masses, exudates, or evidence of obstruction, uvula midline. Mucous membranes moist. Neck: Trachea midline, no thyromegaly or masses palpated, and no cervical lymphadenopathy. Supple, full range of motion without nuchal rigidity, or vertebral point tenderness. Chest/axilla: Normal chest wall appearance and motion. Nontender with no deformity. No lesions are appreciated. Cardiovascular: Regular rate and rhythm with a normal S1 and S2. No gallops, murmurs, or rubs. Normal PMI, no JVD. No pulse deficits. Respiratory: Lungs have equal breath sounds bilaterally, clear to auscultation and percussion. No rales, rhonchi or wheezes noted. No increased work of breathing, no retractions or nasal flaring. Abdomen/GI: Soft, with normal bowel sounds. No distension or tympany. No guarding or rebound. No evidence of tenderness throughout. Back: No spinal tenderness. No costovertebral tenderness. Skin: Warm, dry with normal turgor. Normal color with no rashes, no lesions, and no evidence of cellulitis. MS/ Extremity: Pulses equal, no cyanosis. Neurovascular intact. Full, normal range of motion. Neuro: Awake and alert, GCS 15, oriented to person, place, time, and situation. Cranial nerves II-XII grossly intact. Motor strength 5/5 in all extremities. Sensory grossly intact. Psych: Awake, alert, with orientation to person, place and time. Behavior, mood, and affect are within normal limits 07:41 ECG was reviewed by the Attending Physician. EKG at 0 555 sinus tachycardia rate 118 Vital Signs: 05:40 BP 160 / 107; Pulse 131; Resp 16; Temp 98.5(O); Pulse Ox 99% on R/A; Weight 90.72 kg jb4 (R); Height 5 ft. 7 in. (R); Pain 8/10; 06:40 BP 144 / 97; Pulse 123; Resp 16; Temp 98.5; Pulse Ox 96% ; Pain 8/10; bm8 07:13 BP 118 / 83; Pulse 106; Resp 18; Pulse Ox 97% on R/A; ld1 08:07 BP 120 / 84; Pulse 110; Resp 18; Pulse Ox 100% on R/A; mb9 05:40 Body Mass Index 31.32 (90.72 kg, 170.18 cm) jb4 05:40 Pain Scale: Adult jb4 06:40 Pain Scale: Adult bm8 Giuliana Coma Score: 06:40 Eye Response: spontaneous(4). Motor Response: obeys commands(6). Verbal Response: bm8 oriented(5). Total: 15. 07:41 Eye Response: spontaneous(4). Motor Response: obeys commands(6). Verbal Response: sp4 oriented(5). Total: 15. 07/20 02:22 Eye Response: spontaneous(4). Motor Response: obeys commands(6). Verbal Response: sp4 oriented(5). Total: 15. MDM: 07/19 04:58 Medical Screening Exam initiated sp4 06:48 ED course: EXAMINATION: CT HEAD WITHOUT IV CONTRAST CLINICAL INDICATION: Male, 43 years sp4 old.HEADACHE TECHNIQUE: Axial CT images from the skull base to the vertex without intravenous contrast. Coronal and sagittal reformatted images were created from the data set. One or more of the following dose reduction techniques were used: Automated exposure control, adjustment of the mA and/or kV according to patient size, and/or iterative reconstruction. Unless otherwise specified, incidental findings do not require dedicated imaging follow-up. [id number]. COMPARISON: No prior exam. FINDINGS: INTRACRANIAL: No acute intracranial hemorrhage. No hydrocephalus. No mass effect or midline shift. No significant white matter disease. VASCULATURE: No visualized abnormalities in the arteries or dural venous sinuses. SCALP/SKULL: No significant soft tissue or osseous abnormalities. SINUSES: The visualized paranasal sinuses are predominantly clear. No mastoid effusion. IMPRESSION: No acute intracranial abnormality. ED course: EXAM: XR CHEST 1 VIEW HISTORY: 43 years Male CHEST PAIN COMPARISON: None. FINDINGS: LUNGS/PLEURA: The lungs are clear. No pleural effusions or pneumothorax. No pulmonary edema. CARDIAC/MEDIASTINUM: The cardiac silhouette is within normal limits. UPPER ABDOMEN: No significant abnormality. BONES: No acute abnormality. LINES/TUBES/OTHER: N/A IMPRESSION: No acute cardiopulmonary disease. . 07/20 02:22 Differential diagnosis: cluster headache, hyponatremia, migraine, tension headache, sp4 vasomotor headache. Data reviewed: vital signs, nurses notes, lab test result(s), EKG, radiologic studies. 02:23 ED course: Patient has improved. Stable for discharge home.. 07/19 04:59 Order name: Basic Metabolic Panel; Complete Time: 07:09 07/19 04:59 Order name: CBC with Diff; Complete Time: 06:47 07/19 04:59 Order name: LFT's; Complete Time: 07:09 07/19 04:59 Order name: Magnesium; Complete Time: 07:09 07/19 04:59 Order name: NT PRO-BNP; Complete Time: 07:09 07/19 04:59 Order name: PT-INR; Complete Time: 07:23 07/19 04:59 Order name: Troponin HS; Complete Time: 07:09 07/19 06:02 Order name: Urine Drug Screen; Complete Time: 07:04 07/19 06:02 Order name: Alcohol Level; Complete Time: 07:04 07/19 06:50 Order name: Lipase; Complete Time: 07:54 07/19 04:59 Order name: XRAY Chest (1 view) 07/19 05:06 Order name: CT Head Brain wo Cont 07/19 04:59 Order name: EKG; Complete Time: 04:59 07/19 04:59 Order name: Cardiac monitoring; Complete Time: 06:04 07/19 04:59 Order name: EKG - Nurse/Tech; Complete Time: 06:04 07/19 04:59 Order name: IV Saline Lock; Complete Time: 06:43 07/19 04:59 Order name: Labs collected and sent; Complete Time: 06:43 07/19 04:59 Order name: O2 Per Protocol; Complete Time: 06:03 07/19 04:59 Order name: O2 Sat Monitoring; Complete Time: 06:03 EC/13 05:55 Rate is 118 beats/min. Rhythm is regular, Sinus tachycardia. QRS [place] is Normal. HI sp4 interval is normal. QRS interval is normal. QT interval is normal. No Q waves. T waves are Normal. No ST changes noted. Clinical impression: No evidence of ischemia. Interpreted by me. Reviewed by me. Administered Medications: 06:43 Drug: morphine IVP or IV 8 mg IVP once over 4 mins Route: IVP; Infused Over: 4 mins; bm8 Site: right forearm; 08:08 Follow up: Response: No adverse reaction mb9 06:43 Drug: Ondansetron IVP 8 mg IVP once; over 2 minutes Route: IVP; Site: right forearm; bm8 08:08 Follow up: Response: No adverse reaction mb9 06:43 Drug: Ketorolac IVP 30 mg IVP once Route: IVP; Site: right forearm; bm8 08:08 Follow up: Response: No adverse reaction mb9 06:43 Drug: Droperidol IVP 2.5 mg IVP once Route: IVP; Site: right forearm; bm8 08:08 Follow up: Response: No adverse reaction mb9 06:43 Drug: NS 0.9% IV 1000 ml IV at 1000 ml once; to be given as a bolus over 60 minutes bm8 Route: IV; Rate: 1000 ml; Site: right forearm; 08:08 Follow up: Response: No adverse reaction; IV Status: Completed infusion mb9 07:13 Drug: Ativan IVP 2 mg IVP once Route: IVP; Site: right antecubital; ld1 08:08 Follow up: Response: No adverse reaction mb9 Disposition: 07/20 02:23 Chart complete. sp4 Disposition Summary: 07/19/24 07:52 Discharge Ordered Notes: Location: Home sp4 Problem: new sp4 Symptoms: have improved sp4 Condition: Stable sp4 Diagnosis - Sinus tachycardia, acute postoperative lower back pain, acute moderate tension sp4 headache, elevated blood pressure Followup: sp4 - With: Private Physician - When: 7 - 10 days - Reason: Recheck today's complaints Discharge Instructions: - Discharge Summary Sheet sp4 - Sinus Tachycardia sp4 Forms: - Patient Portal Instructions sp4 Prescriptions: - lorazepam 1 mg Oral tablet - take 1 tablet SUBLINGUAL route every 12 hours as needed for anxiety; 12 tablet; sp4 Refills: 0, Product Selection Permitted Signatures: Dispatcher [employer] EDMS Jose Mcgowan FNP-C PRODUCTION OFFICER-Cla1 Hector Cintron RN RN jb4 Angelina Gerber RN RN ld1 Derek Baez MD MD sp4 Michael Orellana RN RN bm8 Malgorzata Bates RN mb9 Corrections: (The following items were deleted from the chart) 07/19 05:06 05:06 Head Brain Wo Cont+CT.RAD.BRZ ordered. EDMS EDMS
--- NOTE | 2024-07-19 07:53 | ER ---
Nurse's Notes [facility] Name: Demetrius Lugo Jr Age: 43 yrs Sex: Male : 1980 Arrival Date: 07/19/2024 Time: 04:41 Bed 2 Private MD: Diagnosis: Sinus tachycardia, acute postoperative lower back pain, acute moderate tension headache, elevated blood pressure Presentation: 07/19 05:40 Chief complaint: Patient states: I woke up with my heart racing around 1 AM and just jb4 didn't feel right, my b/p at home was 180 over something and HR was 130. Coronavirus screen: At this time, the client does not indicate any symptoms associated with coronavirus-19. Ebola Screen: No symptoms or risks identified at this time. Initial Sepsis Screen: Does the patient meet any 2 criteria? HR > 90 bpm. Yes Does the patient have a suspected source of infection? No. Patient's initial sepsis screen is negative. Risk Assessment: Do you want to hurt yourself or someone else? Patient reports no desire to harm self or others. Onset of symptoms was July 19, 2024. Transition of care: patient was not received from another setting of care. 05:40 Method Of Arrival: Ambulatory jb4 05:40 Acuity: TANK 2 jb4 Triage Assessment: 05:43 Headache History: The patient has had previous headaches and this one is different than jb4 previous episodes. General: Appears in no apparent distress. uncomfortable, Behavior is calm, cooperative, appropriate for age. Pain: Complains of pain in base of the skull Pain does not radiate. Pain currently is 8 out of 10 on a pain scale. Quality of pain is described as sharp, Pain began 4 hours ago. Is continuous, Also complains of Difficulty seeing. Neuro: Level of Consciousness is awake, alert, obeys commands, Oriented to person, place, time, situation. Cardiovascular: Patient's skin is warm and dry. Respiratory: Airway is patent Respiratory effort is even, unlabored, Respiratory pattern is regular, symmetrical. GI: No signs and/or symptoms were reported involving the gastrointestinal system. : No signs and/or symptoms were reported regarding the genitourinary system. Derm: Skin is intact, Skin is pink, warm \T\ dry. Musculoskeletal: Circulation, motion, and sensation intact. Range of motion: intact in all extremities. Historical: - Allergies: 05:43 No Known Allergies; jb4 - Home Meds: 05:43 hydrocodone-acetaminophen 7.5-325 mg Oral tablet 1 tab [Active]; methocarbamol 750 mg jb4 Oral tablet 1 tab 3 times per day [Active]; metoprolol tartrate 25 mg Oral tablet daily [Active]; - PMHx: 05:43 Tachycardia; liver failure (back sugery); jb4 - PSHx: 05:43 back sugery; jb4 - Immunization history:: Adult Immunizations up to date. - Infectious Disease History:: Denies. - Social history:: Smoking status: Patient reports the use of cigarette tobacco products, smokes .25 packs per day, Patient uses alcohol, occasionally. - Family history:: not pertinent. Screenin:40 [facility] ED Fall Risk Assessment (Adult) History of falling in the last 3 months, bm8 including since admission No falls in past 3 months (0 pts) Confusion or Disorientation No (0 pts) Intoxicated or Sedated No (0 pts) Impaired Gait No (0 pts) Mobility Assist Device Used No (0 pt) Altered Elimination No (0 pt) Score/Fall Risk Level 0 - 2 = Low Risk Oriented to surroundings, Maintained a safe environment, Educated pt \T\ family on fall prevention, incl call for assistance when getting out of bed, Assessed \T\ reinforced patient's understanding of fall precautions, Hourly rounding (assess needs \T\ fall precautionary measures) done, Used ambulatory aids as needed (educated on \T\ assisted with), Used gait belt as appropriate. Abuse screen: Denies threats or abuse. Nutritional screening: No deficits noted. Tuberculosis screening: No symptoms or risk factors identified. Assessment: 06:40 General: Appears in no apparent distress. comfortable, uncomfortable, Behavior is calm, bm8 cooperative, appropriate for age. Pain: Complains of pain in scalp and chest and base of the skull Pain currently is 8 out of 10 on a pain scale. Neuro: Level of Consciousness is awake, alert, obeys commands, Oriented to person, place, time, situation, Appropriate for age. Cardiovascular: Reports chest pain, Heart tones S1 S2 present Capillary refill < 3 seconds in bilateral fingers Patient's skin is warm and dry. Rhythm is sinus tachycardia. Respiratory: Airway is patent Trachea midline Respiratory effort is even, unlabored, Respiratory pattern is regular, symmetrical, Breath sounds are clear bilaterally. GI: Abdomen is flat, non-distended, Bowel sounds present X 4 quads. : No signs and/or symptoms were reported regarding the genitourinary system. EENT: No signs and/or symptoms were reported regarding the EENT system. Derm: No signs and/or symptoms reported regarding the dermatologic system. Musculoskeletal: No signs and/or symptoms reported regarding the musculoskeletal system. 07:13 General: Appears in no apparent distress. comfortable, Behavior is calm, cooperative, ld1 appropriate for age. Pain: Denies pain. Neuro: Level of Consciousness is awake, alert, obeys commands, Oriented to person, place, time, situation. Cardiovascular: Capillary refill < 3 seconds Patient's skin is warm and dry. Rhythm is sinus tachycardia. Respiratory: Airway is patent Respiratory effort is even, unlabored. GI: Abdomen is round non-distended. : No signs and/or symptoms were reported regarding the genitourinary system. EENT: No signs and/or symptoms were reported regarding the EENT system. Derm: No signs and/or symptoms reported regarding the dermatologic system. Musculoskeletal: No signs and/or symptoms reported regarding the musculoskeletal system. 08:07 Reassessment: No changes from previously documented assessment. Patient and/or family mb9 updated on plan of care and expected duration. Pain level reassessed. Patient is alert, oriented x 3, equal unlabored respirations, skin warm/dry/pink. Vital Signs: 05:40 BP 160 / 107; Pulse 131; Resp 16; Temp 98.5(O); Pulse Ox 99% on R/A; Weight 90.72 kg jb4 (R); Height 5 ft. 7 in. (R); Pain 8/10; 06:40 BP 144 / 97; Pulse 123; Resp 16; Temp 98.5; Pulse Ox 96% ; Pain 8/10; bm8 07:13 BP 118 / 83; Pulse 106; Resp 18; Pulse Ox 97% on R/A; ld1 08:07 BP 120 / 84; Pulse 110; Resp 18; Pulse Ox 100% on R/A; mb9 05:40 Body Mass Index 31.32 (90.72 kg, 170.18 cm) jb4 05:40 Pain Scale: Adult jb4 06:40 Pain Scale: Adult bm8 [place] Coma Score: 06:40 Eye Response: spontaneous(4). Motor Response: obeys commands(6). Verbal Response: bm8 oriented(5). Total: 15. 07:41 Eye Response: spontaneous(4). Motor Response: obeys commands(6). Verbal Response: sp4 oriented(5). Total: 15. 14 02:22 Eye Response: spontaneous(4). Motor Response: obeys commands(6). Verbal Response: sp4 oriented(5). Total: 15. ED Course: 07/19 04:42 Patient arrived in ED. mr 04:52 Derek Baez MD is Attending Physician. sp4 05:33 CT Head Brain wo Cont In Process Unspecified. EDMS 05:43 Triage completed. jb4 05:43 Arm band placed on right wrist. jb4 06:08 XRAY Chest (1 view) In Process Unspecified. EDMS 06:28 Michael Orellana, RN is Primary Nurse. bm8 06:28 No provider procedures requiring assistance completed. Initial lab(s) drawn, by anusha murcia sent to lab. Urine collected: clean catch specimen, clear, EKG done, by ED staff, reviewed by Derek Baez MD. Inserted saline lock: 20 gauge in right forearm, using aseptic technique. Blood collected. Flushed with 10 mL NS. 06:40 Patient has correct armband on for positive identification. Bed in low position. Call bm8 light in reach. Side rails up X 1. Adult w/ patient. Client placed on continuous cardiac and pulse oximetry monitoring. NIBP monitoring applied. monitoring specialist on. Pulse ox on. NIBP on. Door closed. Noise minimized. Pillow given. Verbal reassurance given. Head of bed elevated. 06:40 Patient maintains SpO2 saturation greater than 95% on room air. bm8 07:15 Primary Nurse role handed off by Michael Orellana, RN ld1 07:15 Angelina Gerber, DIANNA is Primary Nurse. ld1 08:07 IV discontinued, intact, bleeding controlled, No redness/swelling at site. Pressure mb9 dressing applied. Administered Medications: 06:43 Drug: morphine IVP or IV 8 mg IVP once over 4 mins Route: IVP; Infused Over: 4 mins; bm8 Site: right forearm; 08:08 Follow up: Response: No adverse reaction mb9 06:43 Drug: Ondansetron IVP 8 mg IVP once; over 2 minutes Route: IVP; Site: right forearm; bm8 08:08 Follow up: Response: No adverse reaction mb9 06:43 Drug: Ketorolac IVP 30 mg IVP once Route: IVP; Site: right forearm; bm8 08:08 Follow up: Response: No adverse reaction mb9 06:43 Drug: Droperidol IVP 2.5 mg IVP once Route: IVP; Site: right forearm; bm8 08:08 Follow up: Response: No adverse reaction mb9 06:43 Drug: NS 0.9% IV 1000 ml IV at 1000 ml once; to be given as a bolus over 60 minutes bm8 Route: IV; Rate: 1000 ml; Site: right forearm; 08:08 Follow up: Response: No adverse reaction; IV Status: Completed infusion mb9 07:13 Drug: Ativan IVP 2 mg IVP once Route: IVP; Site: right antecubital; ld1 08:08 Follow up: Response: No adverse reaction mb9 Medication: 06:40 VIS not applicable for this client. bm8 Outcome: 07:52 Discharge ordered by MD. beltran 08:07 Discharged to home ambulatory, with family, fritz 08:07 Condition: stable 08:07 Discharge instructions given to patient, family, Instructed on discharge instructions, follow up and referral plans. Demonstrated understanding of instructions, follow-up care, medications, Prescriptions given X 1, 08:08 Patient left the ED. mb9 Signatures: Dispatcher [employer] EDLA Malgorzata Wise, Hector Jacques, RN RN jb4 Angelina Gerber RN RN ld1 Malgorzata Bates, RN RN mb9 Derek Baez MD MD sp4 Michael Orellana RN RN bm8
[2024-07-19 08:33] VITALS: TEMP 98.5
[2024-07-19 08:36] VITALS: BP 120/84; O2SAT 100
--- NOTE | 2024-07-20 12:22 | EKG ---
Test Date: 2024-07-19 Test Time: 05:55:19 Lead Caster Helper: KLAUS MEASUREMENT RESULTS: Intervals: Rate: 118 WI: 116 QRSD: 90 QT: 308 QTc: 431 [place]: P: 38 WI: 116 QRS: 16 T: -3 INTERPRETIVE STATEMENTS: Sinus tachycardia Otherwise normal ECG Compared to ECG 05/15/2024 18:50:57 Sinus rhythm no longer present Electronically Signed On 07-20-24 12:20:13 CDT by Xavi Banks
== END 2024-07-19 08:08 | disposition home or self-care (01) ==
LOC: ER 04:41
DX: R00.0 Tachycardia, unspecified (principal); G89.18 Other acute postprocedural pain; G44.209 Tension-type headache, unspecified, not intractable; R03.0 Elevated blood-pressure reading, without diagnosis of hypertension; F17.210 Nicotine dependence, cigarettes, uncomplicated
CPT/HCPCS: 93005; 85025; 80048; 36415; 83735; 85610; 80076; 84484; 83690; 83880; 80307; 70450; 71045; 99285; 82077; J2405; J1790; J7030